=== PATIENT | female | born 1975 | race Caucasian/White ===

== ENCOUNTER 2018-02-15 03:34 | Observation (INO) | payer BC ==
[2018-02-15 04:15] LABS: Absolute Lymphocytes (CBC) 2.1 K/uL (0.7-4.9); Absolute Monocytes 0.5 K/uL (0.1-1.3); Absolute Neutrophil 4.3 K/uL (1.8-8.0); Basophils % 1.1 % (0-1.3); Eosinophils % 2.8 % (0-4.4); Hematocrit 39.5 % (36.0-45.0); Lymphocytes % 29.2 % (15.3-44.8); MCH 30.8 pg (27.0-35.0); MCV 91.8 fL (80-100); MPV 7.9 fL (7.6-11.3); Monocytes % 6.9 % (3.3-12.3); RBC Red Blood Cell Count 4.31 M/uL (3.86-4.86)
[2018-02-15 04:19] LABS: Urine Blood TRACE (NEG); Urine Glucose NEGATIVE (NEG); Urine Protein NEGATIVE (NEG)
[2018-02-15 04:26] LABS: Urine Bacteria <20 /HPF (<20); Urine Culture Reflex Order NOT NEEDED; Urine Mucus LIGHT /HPF (NONE SEEN)
[2018-02-15 04:29] LABS: Bicarbonate 26 mEq/L (21-31); Glucose Level 106 mg/dL (65-120); Lipase 28 U/L (22-51); Potassium 3.7 mEq/L (3.6-5.0); Sodium Level 137 mEq/L (135-145)
[2018-02-15 04:35] LABS: ALT/SGPT 10 IU/L (10-60); AST/SGOT 17 IU/L (10-42); Alkaline Phosphatase 55 IU/L (42-121); Amylase Level 69 U/L (28-100); BUN Blood Urea Nitrogen 8 mg/dL (6-20); Bilirubin Direct 0.1 mg/dL (0-0.2); Bilirubin Total 0.4 mg/dL (0.3-1.2); Protein, Total 7.1 g/dL (6.0-8.3)
[2018-02-15] MEDS ORDERED: MORPHINE 4 MG/ML SYR ONE (05:00)
[2018-02-15] MEDS ORDERED: PROMETHAZINE 25 MG/ML VIAL ONE (05:01)
[2018-02-15] MEDS ORDERED: NA CHLORIDE 0.9% 1,000 ML ONE ×2 (05:01→06:13)
--- NOTE | 2018-02-15 05:11 | EDPHYS ---
Physician Documentation [facility] Name: Lorie De Los Santos Age: 42 yrs Sex: Female : 1975 Arrival Date: 02/15/2018 Time: 03:38 Bed 7 Private MD: ED Physician Stiven Ernst HPI: 02/15 05:07 This 42 yrs old Female presents to ER via Ambulatory with complaints of delmis Abdominal Pain, Back Pain. 05:07 The patient presents with pain that is acute. 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 - Social history:: Smoking status: Patient uses tobacco products, smokes one pack cigarettes per day. Patient uses alcohol, occasionally. ROS: 05:08 Constitutional: Negative for fever, chills, and weight loss, Eyes: Negative for injury, delmis pain, redness, and discharge, ENT: Negative for injury, pain, and discharge, Neck: Negative for injury, pain, and swelling, Cardiovascular: Negative for chest pain, palpitations, and edema, Respiratory: Negative for shortness of breath, cough, wheezing, and pleuritic chest pain, Back: Negative for injury and pain, : Negative for injury, bleeding, discharge, and swelling, MS/Extremity: Negative for injury and deformity, Skin: Negative for injury, rash, and discoloration, Neuro: Negative for headache, weakness, numbness, tingling, and seizure, Psych: Negative for depression, anxiety, suicide ideation, homicidal ideation, and hallucinations, Allergy/Immunology: Negative for hives, rash, and allergies, Endocrine: Negative for neck swelling, polydipsia, polyuria, polyphagia, and marked weight changes. 05:08 Abdomen/GI: Positive for abdominal pain, of the epigastric area, right upper quadrant and left upper quadrant. Exam: 05:08 Constitutional: This is a well developed, well nourished patient who is awake, alert, delmis and in no acute distress. Head/Face: Normocephalic, atraumatic. Eyes: Pupils equal round and reactive to light, extra-ocular motions intact. Lids and lashes normal. Conjunctiva and sclera are non-icteric and not injected. Cornea within normal limits. Periorbital areas with no swelling, redness, or edema. ENT: Nares patent. No nasal discharge, no septal abnormalities noted. Tympanic membranes are normal and external auditory canals are clear. Oropharynx with no redness, swelling, or masses, exudates, or evidence of obstruction, uvula midline. Mucous membranes moist. Neck: Trachea midline, no thyromegaly or masses palpated, and no cervical lymphadenopathy. Supple, full range of motion without nuchal rigidity, or vertebral point tenderness. No Meningismus. Chest/axilla: Normal chest wall appearance and motion. Nontender with no deformity. No lesions are appreciated. Cardiovascular: Regular rate and rhythm with a normal S1 and S2. No gallops, murmurs, or rubs. Normal PMI, no JVD. No pulse deficits. Respiratory: Lungs have equal breath sounds bilaterally, clear to auscultation and percussion. No rales, rhonchi or wheezes noted. No increased work of breathing, no retractions or nasal flaring. Back: No spinal tenderness. No costovertebral tenderness. Full range of motion. Female : Normal external genitalia. Skin: Warm, dry with normal turgor. Normal color with no rashes, no lesions, and no evidence of cellulitis. MS/ Extremity: Pulses equal, no cyanosis. Neurovascular intact. Full, normal range of motion. Neuro: Awake and alert, GCS 15, oriented to person, place, time, and situation. Cranial nerves II-XII grossly intact. Motor strength 5/5 in all extremities. Sensory grossly intact. Cerebellar exam normal. Normal gait. Psych: Awake, alert, with orientation to person, place and time. Behavior, mood, and affect are within normal limits. 05:08 Abdomen/GI: Inspection: abdomen appears normal, Bowel sounds: normal, Palpation: mild abdominal tenderness, moderate abdominal tenderness, in the epigastric area, right upper quadrant and left upper quadrant. Vital Signs: 03:48 BP 127 / 83; Pulse 74; Resp 17; Temp 97.6; Pulse Ox 97% ; Weight 72.57 kg; Height 5 ft. tl1 7 in. (170.18 cm); Pain 5/10; 05:00 BP 115 / 79; Pulse 78; Resp 17; Pulse Ox 100% ; Pain 8/10; tl1 05:43 BP 103 / 81; Pulse 64; Resp 17; Pulse Ox 100% ; Pain 0/10; tl1 06:19 BP 107 / 72; Pulse 56; Resp 16; Temp 97.4; Pulse Ox 100% ; Pain 0/10; tl1 07:20 BP 107 / 71; Pulse 54; Resp 16; Pulse Ox 99% ; jl7 03:48 Body Mass Index 25.06 (72.57 kg, 170.18 cm) tl1 MDM: 04:24 Patient medically screened. [facility] 02/15 03:51 Order name: Amylase, Serum; Complete Time: 05:04 [facility] 02/15 03:51 Order name: Basic Metabolic Panel; Complete Time: 05:04 [facility] 02/15 03:51 Order name: CBC with Diff; Complete Time: 05:04 [facility] 02/15 03:51 Order name: Hepatic Function; Complete Time: 05:04 [facility] 02/15 03:51 Order name: Lipase; Complete Time: 05:04 [facility] 02/15 03:51 Order name: Urine Microscopic Only; Complete Time: 05:04 [facility] 02/15 04:09 Order name: Urine Dipstick--Ancillary (enter results); Complete Time: 05:04 02/15 04:09 Order name: Urine --Ancillary (enter results); Complete Time: 05:04 02/15 05:15 Order name: Basic Metabolic Panel [facility] 02/15 05:15 Order name: Basic Metabolic Panel [facility] 02/15 05:15 Order name: CBC with Automated Diff [facility] 02/15 05:15 Order name: CBC with Automated Diff [facility] 02/15 05:15 Order name: Lipase [facility] 02/15 03:51 Order name: IV Saline Lock; Complete Time: 03:56 [facility] 02/15 05:07 Order name: CT Abd/Pelvis - W/Contrast [facility] 02/15 05:07 Order name: US Abdomen Limited [facility] 02/15 05:15 Order name: NPO [facility] 02/15 05:15 Order name: Lipase [facility] 02/15 05:15 Order name: Liver (Hepatic) Function [facility] 02/15 05:15 Order name: Liver (Hepatic) Function [facility] 02/15 03:51 Order name: Labs collected and sent; Complete Time: 03:56 tl1 Administered Medications: 05:08 CANCELLED (not available): Zofran 4 mg IVP once; over 2 minutes tl1 05:08 CANCELLED (Duplicate Order): NS 0.9% 1000 ml IV at 1000 ml once tl1 05:08 CANCELLED (Duplicate Order): morphine 4 mg IVP once tl1 05:09 Drug: NS 0.9% 1000 ml Route: IV; Rate: 1 bolus; Site: right antecubital; tl1 06:09 Follow up: IV Status: Completed infusion tl1 05:09 Drug: Phenergan 12.5 mg Route: IVP; Infused Over: 3 mins; Site: right antecubital; tl1 05:44 Follow up: Response: No adverse reaction; Marked relief of symptoms; Nausea is decreasedtl1 05:10 Drug: morphine 4 mg Route: IVP; Site: right antecubital; tl1 05:45 Follow up: Response: No adverse reaction; Marked relief of symptoms; Pain is decreased tl1 05:16 Drug: Pepcid 20 mg Route: IVP; Infused Over: 3 mins; Site: right antecubital; tl1 05:45 Follow up: Response: No adverse reaction; No change in condition tl1 05:16 Drug: Zosyn 3.375 grams Route: IVPB; Infused Over: 60 mins; Site: right antecubital; tl1 06:09 Follow up: IV Status: Completed infusion tl1 06:18 Drug: NS 0.9% 1000 ml Route: IV; Rate: 125 ml/hr; Site: right antecubital; tl1 06:21 Follow up: IV Status: Infusion continued upon admission tl1 Disposition: 02/15/18 05:10 Hospitalization ordered by Howard Ashley for Observation. Preliminary diagnosis are Abdominal tenderness, Upper abdominal pain, unspecified. - Bed requested for Telemetry/MedSurg (Inpatient). - Status is Observation. jl7 - Condition is Fair. - Problem is new. - Symptoms have improved. UTI on Admission? No Signatures: Dispatcher [employer] EDMS Monserrat Rosales RN RN kl Anderson, Corey, MD MD cha Lasagna, Tonya, RN RN tl1 Sofía Ba RN RN jl7 Corrections: (The following items were deleted from the chart) 05:07 03:52 Creatinine for Radiology+C.LAB.BRZ ordered. EDMS EDMS 05:08 05:07 Zofran 4 mg IVP once; over 2 minutes ordered. delmis tl1 05:08 05:07 NS 0.9% 1000 ml IV at 1000 ml once ordered. tl1 tl1 05:08 05:07 morphine 4 mg IVP once ordered. tl1 tl1 06:03 05:10 Hospitalization Ordered by Howard Ashley MD for Observation. Preliminary kl diagnosis is Abdominal tenderness; Upper abdominal pain, unspecified. Bed requested for Telemetry/MedSurg (Inpatient). Status is Observation. Condition is Fair. Problem is new. Symptoms have improved. UTI on Admission? No. delmis 08:00 06:03 02/15/2018 05:10 Hospitalization Ordered by Howard Ashley MD for Observation. jl7 Preliminary diagnosis is Abdominal tenderness; Upper abdominal pain, unspecified. Bed requested for Telemetry/MedSurg (Inpatient). Status is Observation. Condition is Fair. Problem is new. Symptoms have improved. UTI on Admission? No. kl
--- NOTE | 2018-02-15 05:11 | ER ---
Nurse's Notes [facility] Name: Lorie De Los Santos Age: 42 yrs Sex: Female : 1975 Arrival Date: 02/15/2018 Time: 03:38 Bed 7 Private MD: Diagnosis: Abdominal tenderness;Upper abdominal pain, unspecified Presentation: 02/15 03:47 Presenting complaint: Patient states: After dinner tonight I got pain in my upper tl1 stomach that radiated around my right back. Transition of care: patient was not received from another setting of care. Onset of symptoms was February 15, 2018. Initial Sepsis Screen: Does the patient meet any 2 criteria? No. Patient's initial sepsis screen is negative. Does the patient have a suspected source of infection? No. Patient's initial sepsis screen is negative. Care prior to arrival: None. 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 - Social history:: Smoking status: Patient uses tobacco products, smokes one pack cigarettes per day. Patient uses alcohol, occasionally. Screenin:54 Abuse screen: Denies threats or abuse. Denies injuries from another. Nutritional tl1 screening: No deficits noted. Tuberculosis screening: No symptoms or risk factors identified. Fall Risk IV access (20 points). Assessment: 03:52 General: Appears in no apparent distress. Behavior is calm, cooperative, appropriate tl1 for age. Pain: Complains of pain in epigastric area Pain radiates to back Pain currently is 5 out of 10 on a pain scale. Quality of pain is described as burning. Neuro: Level of Consciousness is awake, alert, obeys commands, Oriented to person, place, time, situation. Cardiovascular: Denies chest pain. Respiratory: Airway is patent Trachea midline Respiratory effort is even, unlabored, Breath sounds are clear bilaterally. GI: Abdomen is non-distended, Bowel sounds present X 4 quads. Abd is soft X 4 quads Abd is non tender X 4 quads Reports upper abdominal pain. : No signs and/or symptoms were reported regarding the genitourinary system. EENT: No signs and/or symptoms were reported regarding the EENT system. Derm: No signs and/or symptoms reported regarding the dermatologic system. Musculoskeletal: No signs and/or symptoms reported regarding the musculoskeletal system. 05:44 Reassessment: Patient and/or family updated on plan of care and expected duration. Pain tl1 level reassessed. Patient is alert, oriented x 3, equal unlabored respirations, skin warm/dry/pink. Patient denies pain at this time. Patient states feeling better. Patient states symptoms have improved. Vital Signs: 03:48 BP 127 / 83; Pulse 74; Resp 17; Temp 97.6; Pulse Ox 97% ; Weight 72.57 kg; Height 5 ft. tl1 7 in. (170.18 cm); Pain 5/10; 05:00 BP 115 / 79; Pulse 78; Resp 17; Pulse Ox 100% ; Pain 8/10; tl1 05:43 BP 103 / 81; Pulse 64; Resp 17; Pulse Ox 100% ; Pain 0/10; tl1 06:19 BP 107 / 72; Pulse 56; Resp 16; Temp 97.4; Pulse Ox 100% ; Pain 0/10; tl1 07:20 BP 107 / 71; Pulse 54; Resp 16; Pulse Ox 99% ; jl7 03:48 Body Mass Index 25.06 (72.57 kg, 170.18 cm) tl1 ED Course: 03:38 Patient arrived in ED. es 03:46 Magalys Paz, RN is Primary Nurse. tl1 03:48 Triage completed. tl1 03:51 Arm band placed on right wrist. tl1 03:51 Patient has correct armband on for positive identification. Bed in low position. Call tl1 light in reach. Side rails up X 1. Adult w/ patient. 03:56 Inserted saline lock: 20 gauge in right antecubital area, using aseptic technique. tl2 Blood collected. 04:03 Stiven Ernst MD is Attending Physician. delmis 05:09 Howard Ashley MD is Hospitalizing Provider. delmis 05:[address] via stretcher. nj 05:34 CT completed. Patient tolerated procedure well. Patient moved back from CT. nj 06:20 No provider procedures requiring assistance completed. Patient admitted, IV remains in tl1 place. 07:38 Ultrasound completed. Patient tolerated well. sg3 Administered Medications: 05:08 CANCELLED (not available): Zofran 4 mg IVP once; over 2 minutes tl1 05:08 CANCELLED (Duplicate Order): NS 0.9% 1000 ml IV at 1000 ml once tl1 05:08 CANCELLED (Duplicate Order): morphine 4 mg IVP once tl1 05:09 Drug: NS 0.9% 1000 ml Route: IV; Rate: 1 bolus; Site: right antecubital; tl1 06:09 Follow up: IV Status: Completed infusion tl1 05:09 Drug: Phenergan 12.5 mg Route: IVP; Infused Over: 3 mins; Site: right antecubital; tl1 05:44 Follow up: Response: No adverse reaction; Marked relief of symptoms; Nausea is decreasedtl1 05:10 Drug: morphine 4 mg Route: IVP; Site: right antecubital; tl1 05:45 Follow up: Response: No adverse reaction; Marked relief of symptoms; Pain is decreased tl1 05:16 Drug: Pepcid 20 mg Route: IVP; Infused Over: 3 mins; Site: right antecubital; tl1 05:45 Follow up: Response: No adverse reaction; No change in condition tl1 05:16 Drug: Zosyn 3.375 grams Route: IVPB; Infused Over: 60 mins; Site: right antecubital; tl1 06:09 Follow up: IV Status: Completed infusion tl1 06:18 Drug: NS 0.9% 1000 ml Route: IV; Rate: 125 ml/hr; Site: right antecubital; tl1 06:21 Follow up: IV Status: Infusion continued upon admission tl1 Outcome: 05:10 Decision to Hospitalize by Provider. delmis 07:46 Admitted to Med/surg accompanied by tech, via wheelchair, room 430, with chart, Report jl7 called to DARIEL Mtz 07:46 Condition: stable 07:46 Discharge instructions given to patient, Instructed on the need for admit, Demonstrated understanding of instructions. 08:00 Patient left the ED. jl7 Signatures: Stiven Ernst MD MD cha Salyer, Edna es Lasagna, Tonya, RN RN tl1 Ruth Miranda RN RN tl2 Car Chao Jahala, RN RN jl7 Radha Toledo sg3
[2018-02-15] MEDS ORDERED: ACETAMINOPHEN 500 MG TAB PO PRN (05:12)
[2018-02-15] MEDS ORDERED: MORPHINE 4 MG/ML SYR IV PRN (05:12)
[2018-02-15] MEDS ORDERED: ONDANSETRON 4 MG/2 ML VIAL IV PRN (05:12)
[2018-02-15] MEDS ORDERED: FAMOTIDINE 20 MG/2 ML VIAL IV ONE (05:13)
[2018-02-15] MEDS ORDERED: PIPER/TAZO/NS 3.375gm 3.375 GM/100 ML BAG ONE (05:13)
--- NOTE | 2018-02-15 08:03 | RAD REPORT ---
EXAM DESCRIPTION: CT - Abdomen Pelvis W Contrast - 02/15/2018 6:42 am CLINICAL HISTORY: Abdominal pain A preliminary written report was provided at the time of the study, and the report was reviewed prio r to final dictation. COMPARISON: None. TECHNIQUE: Biphasic, helical CT imaging of the abdomen and pelvis was performed following 100 ml non -ionic IV contrast. No oral contrast was given. All CT scans are performed using dose optimization technique as appropriate and may include automated exposure control or mA/KV adjustment according to patient size. FINDINGS: No suspicious findings in the lung bases. The liver, spleen, and pancreas show no suspicious findings. Gallbladder is well filled but not dilat ed. Gallbladder wall is minimally edematous and there is a trace amount of pericholecystic fluid. No biliary tree dilatation. Symmetric renal function is seen with no hydronephrosis or suspicious renal mass. No pyelonephritis o r acute renal parenchymal process. Urinary bladder, uterus and ovaries show no suspicious findings. Food fills but does not abnormally distend the stomach. No true gastric wall thickening or mass suspe cted. Multiple fluid filled but nondilated small bowel loops are present. Moderate stool volume is pr esent without an acute colon process seen. No appendicitis findings. No free air or pneumatosis. No focal inflammatory stranding. Trace amount of fluid in the [place]sa [place] is within physiologic limits. No hernia, mass or bulky lymphadenopathy. No adrenal abnormality. No suspicious bony findings. IMPRESSION: Gallbladder is well filled but not dilated. There is trace pericholecystic fluid and que stionable gallbladder wall edema. Gallstones can be occult. Biliary tree and pancreas are unremarkable. No other right upper quadrant finding. Fluid-filled small bowel loops are present. These are not clearly abnormal although a small bowel ent eritis would still be possible.
--- NOTE | 2018-02-15 08:05 | RAD REPORT ---
EXAM DESCRIPTION: US - Abdomen Exam Limited - 02/15/2018 7:38 am CLINICAL HISTORY: Right upper quadrant pain, abnormal CT study COMPARISON: CT abdomen February 15 FINDINGS: Gallbladder is well filled but not abnormally distended. Several small mobile gallstones a re present under 1 centimeter in size. Gallbladder wall is upper normal to slightly thickened. The tr eden pericholecystic fluid seen at CT imaging cannot be confirmed on this study. No gallstone is confi rmed as being fixed in the neck. No common duct stone or biliary tree dilatation identified. IMPRESSION: Multiple small sub centimeter mobile gallstones are present. Upper normal to slightly thickened gallbladder wall. Pericholecystic fluid seen at CT imaging is not confirmed at sonography. No biliary tree abnormality.
[2018-02-15] MEDS: D5 0.45 NS 1,000 ML IV SCH ×2 (08:29→14:00)
[2018-02-15] MEDS ORDERED: FAMOTIDINE 20 MG/2 ML VIAL IV SCH (09:00)
[2018-02-15 09:52] VITALS: BMI 25.0
--- NOTE | 2018-02-15 10:28 | P.HP ---
Date of Service: 02/15/18 PC: This 42-year-old female experienced severe right upper quadrant abdominal pain radiating into her back. She presents to the emergency room for diagnosis and treatment. HPC: Patient had sudden onset of excruciating hard abdominal pain last night. Doubled her over. Came to the emergency room. Thinks she may have had some similar episodes recently that were not as severe. PMH: Negative PSHx: Teeth issues necessitating removal of top and bottom, previous tubal ligation SOC: No known allergy SYS REVIEW: No cough, wheeze, shortness of breath. No chest pain or palpitations. No urinary complaints. States she is otherwise in relatively good O/E awake alert comfortable at the moment HEENT: Not jaundice Chest: Chest movement equal bilaterally ABD: Tender in the right upper quadrant LOCO: Intact DATA: Has documented gallstone IMPRESSION: Cholecystitis with cholelithiasis PLAN: I will take her to the operating room for laparoscopic possible open cholecystectomy with intraoperative cholangiogram. The risks of this procedure have been discussed. The possibility of bleeding, infection, injury to bile ducts blood vessels and intestines has been described. The possible need for an open and/or further surgeries and procedures was discussed. She understands and wants us to proceed.
[2018-02-15] MEDS ORDERED: Ringers Lactate 1,000 ML IV ONE (11:23)
[2018-02-15] MEDS: PIPER/TAZO/NS 3.375gm 3.375 GM/100 ML BAG IVPB SCH ×3 (11:39→17:10)
[2018-02-15] MEDS ORDERED: ROCURONIUM 50 MG/5 ML VIAL IV ONE (12:17)
[2018-02-15] MEDS ORDERED: FENTANYL CITR 100 MCG/2 ML ONE ×2 (12:17→13:47)
[2018-02-15] MEDS ORDERED: PROPOFOL 200 MG/20 ML VIAL IV ONE (12:17)
[2018-02-15] MEDS ORDERED: ONDANSETRON HCL 40 MG/20 ML VIAL ONE (13:13)
[2018-02-15] MEDS ORDERED: DEXAMETHASONE 10 MG/ML VIAL ONE (13:13)
[2018-02-15] MEDS ORDERED: KETOROLAC 30 MG/ML INJ ONE (13:13)
[2018-02-15] MEDS ORDERED: NEOSTIGMINE 1 MG/ML -5 ML SYRINGE ONE (13:33)
[2018-02-15] MEDS ORDERED: GLYCOPYRROLATE 0.2 MG/ML SYR ONE (13:33)
--- NOTE | 2018-02-15 14:05 | P.OP ---
Preoperative diagnosis: Acute on chronic cholecystitis with cholelithiasis Postoperative diagnosis: The same Primary procedure: Laparoscopic cholecystectomy Secondary procedure: Cholangiogram Anesthesia: General Estimated blood loss: Less than 10 cc Specimen: 1 gallbladder incontinence Operative Technique: The patient brought the operating room and placed supine on the table. After the induction of adequate general endotracheal anesthesia, the area of the abdomen was prepped with a DuraPrep solution and she was draped in usual aseptic manner. A subumbilical incision was made. This brought down through the skin and subcutaneous tissue. The tissue port was used to enter the peritoneal cavity and created pneumoperitoneum to approximately 12 mm of mercury. Under direct vision a 5 mm trocar was placed in the midline, and 2 others on the right lateral of the abdominal wall. With the patient placed in reverse Trendelenburg and rolled to the left were able to visualize right upper quadrant. We could see a distended acutely inflamed gallbladder. There was obvious edema in the garcia of the gallbladder. A grasper was placed on the fundus, and another down by Julio César's pouch. Once again there was a marked amount of edema around Julio César's pouch. The peritoneum was opened this area gently dissected off the surrounding structures. Having applied lateral traction obtained no critical view the cystic duct was clipped between the gallbladder and the cystic duct. An opening was made into the cystic duct through which we obtained a normal intraoperative cholangiogram. The catheter was removed. The cystic was secured with 2 clips placed using the Endo clips device. The cystic duct was now fully transected. The cystic artery was clipped and divided in the usual way. The gallbladder was now dissected from the liver bed, placed into an Endo-Catch, and brought out through the umbilical trocar site. At this point the abdomen is inspected to ensure adequate hemostasis. Was returned to the neutral position on the OR table. The umbilical trocar site was approximated using the Endo Close an absorbable stitch. The irrigating fluid was aspirated from the right upper quadrant. The pneumoperitoneum was collapsed, the suture tied, and garrett applied to the skin. At the end of the procedure she was stable when sent to the recovery room. Needle sponge instrument count were correct. No drains were placed. Complications: None Transferred to: Recovery Room Condition: Good
[2018-02-15] MEDS ORDERED: HYDROCODONE/APAP 7.5/325 MG TAB PO PRN (14:18)
[2018-02-15] MEDS ORDERED: Ringers Lactate 1,000 ML IV SCH (14:18)
[2018-02-15] MEDS: MEPERIDINE HCL 50 MG/ML AMP ONE ×2 (14:21→14:26)
--- NOTE | 2018-02-15 14:38 | RAD REPORT ---
EXAM DESCRIPTION: RAD - Cholangiogram Oper-Xray Or - 02/15/2018 2:15 pm FINDINGS: Portable C-arm views were obtained during intraoperative cholangiogram. Biliary tree is not dilated. No duct stone, stricture or mass seen on limited evaluation. Contrast in the gallbladder fossa is possibly due to technical factors of injection rather than biloma or bile l eak. Gallbladder is presumed to the already been removed. Overall assessment is limited when only a single images available for review. Correlation is needed w ith findings during real-time evaluation.
[2018-02-15 14:43] VITALS: O2SAT 94
[2018-02-15 15:22] VITALS: TEMP 97.1
[2018-02-15 16:54] VITALS: BP 91/59
== END 2018-02-15 18:32 | disposition home or self-care (01) ==
LOC: ER 03:34 → ERHOLD 05:11 → 4TH 07:43
PROVIDERS: ADMIT Surgery; ATTEND Surgery
PROC: BF00YZZ Plain Radiography of Bile Ducts using Other Contrast (ICD-10-PCS; 2018-02-15)
PROC: 0FT44ZZ Resection of Gallbladder, Percutaneous Endoscopic Approach (ICD-10-PCS; principal; 2018-02-15 12:00)
DX: K80.12 Calculus of gallbladder with acute and chronic cholecystitis without obstruction (principal)
CPT/HCPCS: 36415; 74177; 74300; 76705; 80048; 80076; 81003; 81015; 81025; 82150; 83690; 85025; 88304; 88305; 96361; 96365; 96375; 99285; G0378; J1100; J2175; J2405; J2543; J2550; J2710; J3010; J7030; Q9967

== ENCOUNTER 2018-11-09 15:56 | Emergency (ER) | payer BC ==
[2018-11-09 16:35] LABS: Absolute Lymphocytes (CBC) 2.2 K/uL (0.7-4.9); Absolute Monocytes 0.4 K/uL (0.1-1.3); Absolute Neutrophil 4.1 K/uL (1.8-8.0); Basophils % 0.9 % (0-1.3); Eosinophils % 1.5 % (0-4.4); Hematocrit 42.7 % (36.0-45.0); Lymphocytes % 31.6 % (15.3-44.8); MPV 7.9 fL (7.6-11.3); Monocytes % 6.1 % (3.3-12.3); RBC Red Blood Cell Count 4.64 M/uL (3.86-4.86)
[2018-11-09] MEDS ORDERED: ALTEPLASE 0 ML IV ONE (16:43)
[2018-11-09 16:48] LABS: BUN Blood Urea Nitrogen 8 mg/dL (7-18); Bicarbonate 25 mmol/L (21-32); Glucose Level 118 mg/dL (74-106); Potassium 3.5 mmol/L (3.5-5.1); Sodium Level 139 mmol/L (136-145)
--- NOTE | 2018-11-09 17:13 | RAD REPORT ---
EXAM DESCRIPTION: CT - Ct Stroke Brain Wo Cont - 11/09/2018 4:33 pm CLINICAL HISTORY: Left-sided numbness and tingling, stroke protocol study CLINICAL HISTORY: None. TECHNIQUE: Axial 5 millimeter thick images of the head were obtained without IV contrast. All CT scans are performed using dose optimization technique as appropriate and may include automated exposure control or mA/KV adjustment according to patient size. FINDINGS: No intracranial hemorrhage, mass, or cerebral edema. No acute infarction identifiable. No extra-axial fluid collections. Liao matter-white matter differentiation is preserved. Visualized portions of the mastoid air cells, paranasal sinuses, and orbits are unremarkable. Findings telephoned to the referring clinician 4:17 p.m. IMPRESSION: No CT evidence of acute intracranial process. Continued concerns for acute CVA can be addressed with MR imaging.
--- NOTE | 2018-11-09 17:14 | RAD REPORT ---
EXAM DESCRIPTION: RAD - Chest Single View - 11/09/2018 4:57 pm CLINICAL HISTORY: Stroke protocol chest film, left-sided symptoms COMPARISON: CT study January 2018 TECHNIQUE: AP portable chest image was obtained 1654 hour . FINDINGS: Lungs are clear. Heart and vasculature are normal. No measurable pleural effusion and no p neumothorax. No acute bony abnormality seen. No acute aortic findings suspected. Right pericardial fa t pad is present. IMPRESSION: No acute cardiopulmonary process.
--- NOTE | 2018-11-09 17:33 | ER ---
Nurse's Notes [facility] Name: Lorie De Los Santos Age: 43 yrs Sex: Female : 1975 Arrival Date: 11/09/2018 Time: 15:57 Bed 8 Private MD: None, None Diagnosis: Ischemic stroke;Paresthesia of skin;Weakness Presentation: 11/09 16:08 Presenting complaint: Left sided facial numbness, left arm and top of left thigh hb numbness that started at 1515. 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 Transition of care: patient was not received from another setting of care. Onset of symptoms was November 09, 2018 at 15:15. Risk Assessment: Do you want to hurt yourself or someone else? Patient reports no desire to harm self or others. Care prior to arrival: Medication(s) given: ASA, 81 mg. 16:08 Method Of Arrival: Ambulatory hb 16:08 Acuity: BORA 2 hb 16:20 Initial Sepsis Screen: Does the patient meet any 2 criteria? No. Patient's initial sv sepsis screen is negative. Does the patient have a suspected source of infection? No. Patient's initial sepsis screen is negative. Historical: - Allergies: 16:23 No Known Allergies; hb - Home Meds: 16:23 None [Active]; hb - PMHx: 16:23 None; hb - PSHx: 16:23 Tubal ligation; hb - Immunization history:: Adult Immunizations up to date. - Social history:: Smoking status: Patient/guardian denies using tobacco. - Ebola Screening: : No symptoms or risks identified at this time. - Family history:: not pertinent. - Hospitalizations: : No recent hospitalization is reported. Screenin:22 Abuse screen: Denies threats or abuse. Denies injuries from another. Nutritional hb screening: No deficits noted. Tuberculosis screening: No symptoms or risk factors identified. Fall Risk None identified. 16:25 Patient has been NPO before screening. The patient is alert, able to follow commands. sv The patient does not exhibit slurred or garbled speech The patient is not exhibiting difficulty speaking. The patient does not exhibit difficulty understanding words. The patient is able to swallow own secretions with no drooling or need for suction. Patient tolerated one teaspoon of water. No drooling, immediate coughing, gurgling, or clearing of the throat was noted. The patient tolerated 90mL of water. No drooling, immediate coughing, gurgling, or clearing of the throat was noted. The patient passed the bedside swallow screening. Oral medications may be given as ordered. Contact Physician for further diet orders. Provider notified of bedside swallow screening results: Huber Azevedo MD. Assessment: 16:08 Reassessment: BGL 111. hb 16:09 Reassessment: CODE STROKE called, pt transported to CT via wheelchair with Reba VIEIRA. hb 16:15 Reassessment: Pt returned from CT. hb 16:16 Reassessment: Dr. Azevedo at bedside. hb 16:37 Reassessment: Pt had a change of mind about TPA administration. Initially after going ss over risks and possible benefits involved patient gave verbal consent for TPA administration. When getting paper consent signed, patient stated she no longer would like to have the TPA medication. Dr. Azevedo notified and is again at bedside. 16:45 Reassessment: Dr Azevedo stated that pt is unable to think straight right now because she sv has to urinate. Ok by Dr Azevedo to send pt to bathroom via wheelchair. 16:58 Reassessment: Dr Azevedo at bedside discussing with pt what her decision is. Pt does not sv want TPA at this time. 17:30 Reassessment: Patient appears in no apparent distress at this time. No changes from sv previously documented assessment. Patient and/or family updated on plan of care and expected duration. Pain level reassessed. Patient is alert, oriented x 3, equal unlabored respirations, skin warm/dry/pink. 18:07 Reassessment: Report called to [facility], to Rach VIEIRA. sv 18:39 Reassessment: Patient appears in no apparent distress at this time. No changes from sv previously documented assessment. Patient and/or family updated on plan of care and expected duration. Pain level reassessed. Patient is alert, oriented x 3, equal unlabored respirations, skin warm/dry/pink. Vital Signs: 16:08 BP 129 / 78; Pulse 99; Resp 16; Temp 97.2; Pulse Ox 100% on R/A; Pain 0/10; hb 16:30 Weight 88.8 kg (M); ss 16:30 BP 130 / 88; Pulse 77; Resp 12; Pulse Ox 100% ; sv 17:00 BP 113 / 80; Pulse 79; Resp 14; Pulse Ox 100% ; sv 17:30 BP 120 / 71; Pulse 70; Resp 14; Pulse Ox 100% ; sv 18:07 BP 131 / 65; Pulse 77; Resp 12; Pulse Ox 100% ; sv NIH Stroke Scale Scores: 16:18 NIHSS Score: 1 sv 16:30 NIHSS Score: 1 rn 16:58 NIHSS Score: 2 rn tele Course: 15:57 Patient arrived in ED. dl4 15:57 None, None is Private Physician. dl4 16:16 Huber Azevedo MD is Attending Physician. rn 16:20 Initial lab(s) drawn, by ED staff, sent to lab. Inserted saline lock: 20 gauge in right sv antecubital area, using aseptic technique. ,using aseptic technique. done by Kelin VIEIRA Blood collected. 16:20 Patient has correct armband on for positive identification. Placed in gown. Bed in low sv position. Call light in reach. Side rails up X 1. Adult w/ patient. patrol guard on. Pulse ox on. NIBP on. Door closed. Warm blanket given. Head of bed elevated. 16:20 Arm band placed on. sv 16:21 Triage completed. hb 16:33 CT Stroke Brain w/o Contrast In Process Unspecified. EDMS 16:52 Homa Durham, DARIEL is Primary Nurse. sv 16:54 X-ray(s) taken. sv 16:55 X-ray completed. Portable x-ray completed in exam room. Patient tolerated procedure sg4 well. 16:57 Stroke CXR 1 View In Process Unspecified. EDMS 18:08 No provider procedures requiring assistance completed. Patient transferred, IV remains sv in place. intact. Administered Medications: 17:22 Not Given (Patient Refused): ACTIvase IV Thrombolytics at calculated rate Per protocol rn over 60 mins; 0.9 mg/kg IV (Max: 90 mg); give 10% of the total dose as an IV bolus over 1 minute, then give the remaining 90% as an IV infusion over 60 minutes 18:39 Drug: PlaVIX 75 mg Route: PO; sv 18:39 Follow up: Response: Medication administered at discharge. sv Point of Care Testing: Blood Glucose: 16:09 Blood Glucose: 111 mg/dL; hb Ranges: Outcome: 17:32 ER care complete, transfer ordered by . rn 18:39 Transferred by [facility] to [facility], Transfer form completed. X-rays sent w/ patient. Note: Report give to Robson with EMS 18:39 Condition: stable 18:39 Instructed on the need for transfer. 18:54 Patient left the ED. NIH Stroke Scale - NIH Stroke Score Date: 11/09/2018 Time: 16:18 Total Score = 1 1a. Level of Consciousness (LOC) - 0(Alert) 1b. Level of Consciousness (LOC) (Year \T\ Age) - 0(Both) 1c. LOC Commands (Open \T\ Closes Eyes/Journeyman Plumber) - 0(Both) 2. Best Gaze (Lateral Gaze Paresis) - 0(Normal) 3. Visual Field Loss - 0(No visual loss) 4. Facial Palsy - 0(Normal) 5a. Left Arm: Motor (10-second hold) - 0(No drift) 5b. Right Arm: Motor (10-second hold) - 0(No drift) 6a. Left Leg: Motor (5-second hold - always test supine) - 0(No drift) 6b. Right Leg: Motor (5-second hold - always test supine) - 0(No drift) 7. Limb Ataxia (finger/nose \T\ heel/de los santos - test with eyes open) - 0(Absent) 8. Sensory Loss (pinprick arms/legs/face) - 1(Mild to moderate loss) 9. Best Language: Aphasia (description/naming/reading) - 0(No aphasia) 10. Dysarthria (speech clarity - read or repeat words) - 0(Normal) 11. Extinction and Inattention (visual/tactile/auditory/spatial/personal) - 0(No abnormality) Initials: NIH Stroke Scale - NIH Stroke Score Date: 11/09/2018 Time: 16:30 Total Score = 1 1a. Level of Consciousness (LOC) - 0(Alert) 1b. Level of Consciousness (LOC) (Year \T\ Age) - 0(Both) 1c. LOC Commands (Open \T\ Closes Eyes/Journeyman Plumber) - 0(Both) 2. Best Gaze (Lateral Gaze Paresis) - 0(Normal) 3. Visual Field Loss - 0(No visual loss) 4. Facial Palsy - 0(Normal) 5a. Left Arm: Motor (10-second hold) - 0(No drift) 5b. Right Arm: Motor (10-second hold) - 0(No drift) 6a. Left Leg: Motor (5-second hold - always test supine) - 0(No drift) 6b. Right Leg: Motor (5-second hold - always test supine) - 0(No drift) 7. Limb Ataxia (finger/nose \T\ heel/de los santos - test with eyes open) - 0(Absent) 8. Sensory Loss (pinprick arms/legs/face) - 1(Mild to moderate loss) 9. Best Language: Aphasia (description/naming/reading) - 0(No aphasia) 10. Dysarthria (speech clarity - read or repeat words) - 0(Normal) 11. Extinction and Inattention (visual/tactile/auditory/spatial/personal) - 0(No abnormality) Initials: dariel NIH Stroke Scale - NIH Stroke Score Date: 11/09/2018 Time: 16:58 Total Score = 2 1a. Level of Consciousness (LOC) - 0(Alert) 1b. Level of Consciousness (LOC) (Year \T\ Age) - 0(Both) 1c. LOC Commands (Open \T\ Closes Eyes/Journeyman Plumber) - 0(Both) 2. Best Gaze (Lateral Gaze Paresis) - 0(Normal) 3. Visual Field Loss - 0(No visual loss) 4. Facial Palsy - 1(Minor Paralysis) 5a. Left Arm: Motor (10-second hold) - 0(No drift) 5b. Right Arm: Motor (10-second hold) - 0(No drift) 6a. Left Leg: Motor (5-second hold - always test supine) - 0(No drift) 6b. Right Leg: Motor (5-second hold - always test supine) - 0(No drift) 7. Limb Ataxia (finger/nose \T\ heel/de los santos - test with eyes open) - 0(Absent) 8. Sensory Loss (pinprick arms/legs/face) - 1(Mild to moderate loss) 9. Best Language: Aphasia (description/naming/reading) - 0(No aphasia) 10. Dysarthria (speech clarity - read or repeat words) - 0(Normal) 11. Extinction and Inattention (visual/tactile/auditory/spatial/personal) - 0(No abnormality) Initials: rn Signatures: Dispatcher [employer] Homa Wall RN RN sv Nieto, Roman, MD MD rn Smirch, Shelby, RN RN ss Baxter, Heather, RN RN hb Garcia, Susana sg4 Antonio Heath dl4 Corrections: (The following items were deleted from the chart) 16:14 16:14 BP 129 / 78; Pulse 99bpm; Resp 16bpm; Pulse Ox 100% RA; Temp 97.2F; Pain hb 0/10; hb
--- NOTE | 2018-11-09 17:33 | EDPHYS ---
Physician Documentation [facility] Name: Lorie De Los Santos Age: 43 yrs Sex: Female : 1975 Arrival Date: 11/09/2018 Time: 15:57 Bed 8 Private MD: None, None ED Physician Huber Azevedo HPI: 11/09 17:28 This 43 yrs old Female presents to ER via Ambulatory with complaints of rn Numbness Of Arm. 17:29 The patient presents to the emergency department with paresthesias of the. Onset: The rn symptoms/episode began/occurred at 15:15. Context: occurred at home. Severity of symptoms: At their worst the symptoms were moderate in the emergency department the symptoms have improved. Current symptoms: paralysis or paresis. The patient has not experienced similar symptoms in the past. Reports onset at 1515, left facial numbness and left arm numb, left leg numb and feels heavy, symptoms have improved but not totally resolved. NO trauma, no chest pain. . Historical: - Allergies: 16:23 No Known Allergies; hb - Home Meds: 16:23 None [Active]; hb - PMHx: 16:23 None; hb - PSHx: 16:23 Tubal ligation; hb - Immunization history:: Adult Immunizations up to date. - Social history:: Smoking status: Patient/guardian denies using tobacco. - Ebola Screening: : No symptoms or risks identified at this time. - Family history:: not pertinent. - Hospitalizations: : No recent hospitalization is reported. ROS: 17:29 Constitutional: Negative for fever, chills, and weight loss, Eyes: Negative for injury, rn pain, redness, and discharge, Cardiovascular: Negative for chest pain, palpitations, and edema, Respiratory: Negative for shortness of breath, cough, wheezing, and pleuritic chest pain, Abdomen/GI: Negative for abdominal pain, nausea, vomiting, diarrhea, and constipation, MS/Extremity: Negative for injury and deformity, Skin: Negative for injury, rash, and discoloration, Neuro: + numbness and weakness Exam: 17:29 Constitutional: This is a well developed, well nourished patient who is awake, alert, rn appears anxious Head/Face: Normocephalic, atraumatic. Eyes: Pupils equal round and reactive to light, extra-ocular motions intact. Lids and lashes normal. Conjunctiva and sclera are non-icteric and not injected. Cornea within normal limits. Periorbital areas with no swelling, redness, or edema. Cardiovascular: Regular rate and rhythm. No pulse deficits. Respiratory: Lungs have equal breath sounds bilaterally, clear to auscultation. No increased work of breathing, no retractions or nasal flaring. Abdomen/GI: soft, non-tender Skin: Warm, dry with normal turgor. Normal color with no rashes, no lesions, and no evidence of cellulitis. MS/ Extremity: Pulses equal, no cyanosis. Neurovascular intact. Full, normal range of motion. Equal circumference. Neuro: Awake and alert, GCS 15, oriented to person, place, time, and situation. + mild left lower facial droop, + paresthesias to soft touch LUE, normal strength without drift. Vital Signs: 16:08 BP 129 / 78; Pulse 99; Resp 16; Temp 97.2; Pulse Ox 100% on R/A; Pain 0/10; hb 16:30 Weight 88.8 kg (M); ss 16:30 BP 130 / 88; Pulse 77; Resp 12; Pulse Ox 100% ; sv 17:00 BP 113 / 80; Pulse 79; Resp 14; Pulse Ox 100% ; sv 17:30 BP 120 / 71; Pulse 70; Resp 14; Pulse Ox 100% ; sv 18:07 BP 131 / 65; Pulse 77; Resp 12; Pulse Ox 100% ; sv NIH Stroke Scale Scores: 16:18 NIHSS Score: 1 sv 16:30 NIHSS Score: 1 rn 16:58 NIHSS Score: 2 rn MDM: 16:16 Patient medically screened. rn 16:30 ED course: NIH scale 1, onset was 1 hour prior to arrival, symptoms present and rn consented for TPA. CT head no acute finding per radiology. . 16:58 ED course: Correction: NIH scale 2, for minor facial paralysis. Patient still does not rn want TPA, understands implications.. 17:18 ED course: Pt accepted for transfer to [facility] by Dr. Puente, confirmed again, does rn not want TPA. . 17:29 Data reviewed: vital signs, nurses notes, lab test result(s), EKG, radiologic studies, rn and as a result, I will admit patient. Counseling: I had a detailed discussion with the patient and/or guardian regarding: the historical points, exam findings, and any diagnostic results supporting the discharge/admit diagnosis, lab results, radiology results, the need to transfer to another facility, [facility] does not immediately have the required specialist. 11/09 16:26 Order name: Basic Metabolic Panel; Complete Time: 16:52 11/09 16:26 Order name: CBC with Diff; Complete Time: 16:52 11/09 16:26 Order name: Protime (+inr); Complete Time: 16:52 11/09 16:26 Order name: Ptt, Activated; Complete Time: 16:52 11/09 16:58 Order name: Urine Dipstick--Ancillary (enter results) 11/09 16:58 Order name: Urine --Ancillary (enter results) 11/09 16:26 Order name: CT Stroke Brain w/o Contrast; Complete Time: 17:17 11/09 16:26 Order name: Stroke CXR 1 View; Complete Time: 17:17 11/09 16:26 Order name: EKG; Complete Time: 16:27 11/09 16:26 Order name: Accucheck; Complete Time: 16:42 11/09 16:26 Order name: Cardiac monitoring; Complete Time: 16:42 11/09 16:26 Order name: EKG - Nurse/Tech; Complete Time: 16:43 11/09 16:26 Order name: IV Saline Lock; Complete Time: 16:32 11/09 16:26 Order name: Labs collected and sent; Complete Time: 16:32 11/09 16:26 Order name: NPO; Complete Time: 16:32 11/09 16:26 Order name: O2 Per Protocol; Complete Time: 16:32 11/09 16:26 Order name: O2 Sat Monitoring; Complete Time: 16:31 11/09 16:26 Order name: Stroke Swallow Screen; Complete Time: 18:00 em Administered Medications: 17:22 Not Given (Patient Refused): ACTIvase IV Thrombolytics at calculated rate Per protocol rn over 60 mins; 0.9 mg/kg IV (Max: 90 mg); give 10% of the total dose as an IV bolus over 1 minute, then give the remaining 90% as an IV infusion over 60 minutes 18:39 Drug: PlaVIX 75 mg Route: PO; 18:39 Follow up: Response: Medication administered at discharge. Point of Care Testing: Blood Glucose: 16:09 Blood Glucose: 111 mg/dL; hb Ranges: Critical Glucose Levels:Adult <50 mg/dl or >400 mg/dl <40 mg/dl or >180 mg/dl Disposition: 11/09/18 17:32 Transfer ordered to [facility]. Diagnosis are Ischemic stroke, Paresthesia of skin, Weakness. - Reason for transfer: Higher level of care. - Accepting physician is Dr. Puente. - Condition is Stable. - Problem is new. - Symptoms have improved. NIH Stroke Scale - NIH Stroke Score Date: 11/09/2018 Time: 16:18 Total Score = 1 1a. Level of Consciousness (LOC) - 0(Alert) 1b. Level of Consciousness (LOC) (Year \T\ Age) - 0(Both) 1c. LOC Commands (Open \T\ Closes Eyes/Color Maker Formulator) - 0(Both) 2. Best Gaze (Lateral Gaze Paresis) - 0(Normal) 3. Visual Field Loss - 0(No visual loss) 4. Facial Palsy - 0(Normal) 5a. Left Arm: Motor (10-second hold) - 0(No drift) 5b. Right Arm: Motor (10-second hold) - 0(No drift) 6a. Left Leg: Motor (5-second hold - always test supine) - 0(No drift) 6b. Right Leg: Motor (5-second hold - always test supine) - 0(No drift) 7. Limb Ataxia (finger/nose \T\ heel/de los santos - test with eyes open) - 0(Absent) 8. Sensory Loss (pinprick arms/legs/face) - 1(Mild to moderate loss) 9. Best Language: Aphasia (description/naming/reading) - 0(No aphasia) 10. Dysarthria (speech clarity - read or repeat words) - 0(Normal) 11. Extinction and Inattention (visual/tactile/auditory/spatial/personal) - 0(No abnormality) Initials: NIH Stroke Scale - NIH Stroke Score Date: 11/09/2018 Time: 16:30 Total Score = 1 1a. Level of Consciousness (LOC) - 0(Alert) 1b. Level of Consciousness (LOC) (Year \T\ Age) - 0(Both) 1c. LOC Commands (Open \T\ Closes Eyes/Color Maker Formulator) - 0(Both) 2. Best Gaze (Lateral Gaze Paresis) - 0(Normal) 3. Visual Field Loss - 0(No visual loss) 4. Facial Palsy - 0(Normal) 5a. Left Arm: Motor (10-second hold) - 0(No drift) 5b. Right Arm: Motor (10-second hold) - 0(No drift) 6a. Left Leg: Motor (5-second hold - always test supine) - 0(No drift) 6b. Right Leg: Motor (5-second hold - always test supine) - 0(No drift) 7. Limb Ataxia (finger/nose \T\ heel/de los santos - test with eyes open) - 0(Absent) 8. Sensory Loss (pinprick arms/legs/face) - 1(Mild to moderate loss) 9. Best Language: Aphasia (description/naming/reading) - 0(No aphasia) 10. Dysarthria (speech clarity - read or repeat words) - 0(Normal) 11. Extinction and Inattention (visual/tactile/auditory/spatial/personal) - 0(No abnormality) Initials: wali NIH Stroke Scale - NIH Stroke Score Date: 11/09/2018 Time: 16:58 Total Score = 2 1a. Level of Consciousness (LOC) - 0(Alert) 1b. Level of Consciousness (LOC) (Year \T\ Age) - 0(Both) 1c. LOC Commands (Open \T\ Closes Eyes/Color Maker Formulator) - 0(Both) 2. Best Gaze (Lateral Gaze Paresis) - 0(Normal) 3. Visual Field Loss - 0(No visual loss) 4. Facial Palsy - 1(Minor Paralysis) 5a. Left Arm: Motor (10-second hold) - 0(No drift) 5b. Right Arm: Motor (10-second hold) - 0(No drift) 6a. Left Leg: Motor (5-second hold - always test supine) - 0(No drift) 6b. Right Leg: Motor (5-second hold - always test supine) - 0(No drift) 7. Limb Ataxia (finger/nose \T\ heel/de los santos - test with eyes open) - 0(Absent) 8. Sensory Loss (pinprick arms/legs/face) - 1(Mild to moderate loss) 9. Best Language: Aphasia (description/naming/reading) - 0(No aphasia) 10. Dysarthria (speech clarity - read or repeat words) - 0(Normal) 11. Extinction and Inattention (visual/tactile/auditory/spatial/personal) - 0(No abnormality) Initials: rn Signatures: Dispatcher [employer] Homa Wall RN RN Huber Azevedo MD MD rn Martinez, Eric [facility] Reba Mathias RN RN Corrections: (The following items were deleted from the chart) 18:54 17:32 11/09/2018 17:32 Transfer ordered to [facility]. sv Diagnosis is Ischemic stroke; Paresthesia of skin; Weakness. Reason for transfer: Higher level of care. Accepting physician is Dr. Puente. Condition is Stable. Problem is new. Symptoms have improved. rn
[2018-11-09] MEDS ORDERED: CLOPIDOGREL 75 MG TABLET ONE (18:48)
[2018-11-09 19:45] LABS: Urine Blood NEGATIVE (NEG); Urine Glucose NEGATIVE (NEG); Urine Protein NEGATIVE (NEG); Urine pH 6.5 (5.0-7.0)
[2018-11-09 19:54] VITALS: TEMP 97.2; O2SAT 100
[2018-11-09 19:59] VITALS: BP 131/65
--- NOTE | 2018-11-09 21:50 | EKG ---
Test Date: 2018-11-09 Test Time: 16:29:06 Weathercaster: MEASUREMENT RESULTS: Intervals: Rate: 90 FL: 140 QRSD: 90 QT: 386 QTc: 472 [place]: P: 57 FL: 140 QRS: 22 T: 11 INTERPRETIVE STATEMENTS: Normal sinus rhythm Nonspecific ST abnormality Abnormal ECG No previous ECG available for comparison Electronically Signed On 11-09-18 21:49:28 HEATER ENGINEER HELPER by Jerrod Mares
== END 2018-11-09 18:54 | disposition short-term general hospital (02) ==
LOC: ER 15:56
DX: I63.9 Cerebral infarction, unspecified (principal); R53.1 Weakness; R29.810 Facial weakness; R29.702 NIHSS score 2
CPT/HCPCS: 36415; 70450; 71045; 80048; 81003; 81025; 82962; 85025; 85610; 85730; 93005; 99285; J2997

== ENCOUNTER → 2018-12-11 | Day surgery (SDC) | payer BC ==
[2012-03-16 10:48] VITALS: BP 120/75
--- OUTSIDE RECORDS SUMMARY | 2018-12-11 09:32 | XMS REPORT ---
:1975 Author Organization [employer] Care Team Providers Name Role Phone Sarah Euceda Provider Role Unavailable Allergies No Known Allergies Problems Problem Type Condition Code Onset Dates Condition Status Problem Thyroid lesion E07.89 Active Problem Anxiety F41.9 Active Problem Thyroid mass E07.9 Active Assessment Thyroid mass E07.9 Active Medications No Known Medications Results No Known Results Summary Purpose [employer] Submission
--- OUTSIDE RECORDS SUMMARY | 2018-12-11 09:32 | XMS REPORT ---
:1975 [facility] [address] [place] [address] Care Team Providers Name Role Phone YOLY ROSENBERG Unavailable Unavailable Problems This patient has no known problems. Allergies, Adverse Reactions, Alerts This patient has no known allergies or adverse reactions. Medications This patient has no known medications. Results Test Description Test Time Test Comments Text Results Atomic Results Result Comments CT, CTANGIO BRAIN 2018-11-10 16:32:00 FINAL REPORT CTA carotids and brain 11/10/2018 4:29 PM CLINICAL INDICATION: TIA COMPARISON: None available TECHNIQUE: Noncontrast axial CT images of the head were obtained. Subsequently, axial CT angiographic images of the upper chest, neck, and head were obtained, from which three-dimensional reconstructed images were created. Additional imaging series were created on an independent workstation using maximum intensity projection and volume rendered technique. This examination was performed according to our departmental dose optimization program, which includes automated exposure control, adjustment of the mA and/or kV according to patient size, and/or use of iterated reconstruction technique. FINDINGS: There is no intracranial hemorrhage, mass, hydrocephalus, extra-axial collection, or midline shift. There is no CT evidence for cerebral infarction. Patient motion and poor contrast bolus timing limit this examination. Pathology may be obscured. With these limitations in mind, there is no vessel occlusion in the intracranial or extracranial arterial vasculature. There is no NASCET quantifiable cervical internal carotid artery stenosis. There is no remarkable stenosis elsewhere in the intracranial or extracranial arterial vasculature. There is a 27 mm mixed cystic/solid lesion in the dorsal left lobe of the thyroid gland. The remaining visualized soft tissue and skeleton are without worrisome finding. IMPRESSION: 1. Limited, but otherwise unremarkable intracranial and extracranial CTAs. 2. Indeterminate left thyroid lesion, for which further evaluation with ultrasound is recommended Signed: Twan Beckwithort Verified Date/Time: 11/10/2018 16:32:54 Reading Location: [facility] Radiology Reading Room , CAROTID, ANGIO 2018-11-10 16:32:00 FINAL REPORT CTA carotids and brain 11/10/2018 4:29 PM CLINICAL INDICATION: TIA COMPARISON: None available TECHNIQUE: Noncontrast axial CT images of the head were obtained. Subsequently, axial CT angiographic images of the upper chest, neck, and head were obtained, from which three-dimensional reconstructed images were created. Additional imaging series were created on an independent workstation using maximum intensity projection and volume rendered technique. This examination was performed according to our departmental dose optimization program, which includes automated exposure control, adjustment of the mA and/or kV according to patient size, and/or use of iterated reconstruction technique. FINDINGS: There is no intracranial hemorrhage, mass, hydrocephalus, extra-axial collection, or midline shift. There is no CT evidence for cerebral infarction. Patient motion and poor contrast bolus timing limit this examination. Pathology may be obscured. With these limitations in mind, there is no vessel occlusion in the intracranial or extracranial arterial vasculature. There is no NASCET quantifiable cervical internal carotid artery stenosis. There is no remarkable stenosis elsewhere in the intracranial or extracranial arterial vasculature. There is a 27 mm mixed cystic/solid lesion in the dorsal left lobe of the thyroid gland. The remaining visualized soft tissue and skeleton are without worrisome finding. IMPRESSION: 1. Limited, but otherwise unremarkable intracranial and extracranial CTAs. 2. Indeterminate left thyroid lesion, for which further evaluation with ultrasound is recommended Signed: Twan Beckwith Verified Date/Time: 11/10/2018 16:32:54 Reading Location: [facility] Radiology Reading Room GLOBIN A1C 2018-11-10 11:14:00 Test Item Value Reference Range Comments HEMOGLOBIN A1C (BEAKER) (test zngg=881) 4.8 % 4.3-6.1 VITAMIN B12 AND [id number] 02:22:00 Test Item Value Reference Range Comments VITAMIN B12 (BEAKER) (test mkmd=362) 327 pg/mL 213-816 FOLATE (BEAKER) (test trpe=152) 11.9 ng/mL >=7.0 TSH/FREE T4 IF [id number] 00:10:00 Test Item Value Reference Range Comments THYROID STIMULATING HORMONE (BEAKER) (test 1.73 uIU/mL 0.35-4.94 ohzh=491) TROPONIN [id number] 23:55:00 Test Item Value Reference Range Comments TROPONIN I (BEAKER) (test xesv=481) < ng/mL 0.00-0.03 Troponin I (TnI) levels must be interpreted in the context of the presenting symptoms and the clinical findings. Elevated TnI levels indicate myocardial damage, but are not specific for ischemic heart disease. Elevated TnI levels are seen in patients with other cardiac conditions (including myocarditis and congestive heart failure), and slight TnI elevations occur in patients with other conditions, including sepsis, renal failure, acidosis, acute neurological disease, and persistent tachyarrhythmia.[id number] 23:49:00 Test Item Value Reference Range Comments MAGNESIUM (BEAKER) (test azwj=475) 2.0 mg/dL 1.6-2.6 BASIC METABOLIC [id number] 23:49:00 Test Item Value Reference Range Comments SODIUM (BEAKER) (test 139 meq/L 136-145 pafz=073) POTASSIUM (BEAKER) (test 3.3 meq/L 3.5-5.1 oqgg=943) CHLORIDE (BEAKER) (test 106 meq/L 98-107 ecob=480) CO2 (BEAKER) (test 24 meq/L 22-29 fcsz=929) BLOOD UREA NITROGEN 7 mg/dL 7-21 (BEAKER) (test tsho=971) CREATININE (BEAKER) (test 0.71 mg/dL 0.57-1.25 hrnr=874) GLUCOSE RANDOM (BEAKER) 125 mg/dL 70-105 (test ufyz=877) CALCIUM (BEAKER) (test 9.2 mg/dL 8.4-10.2 mykl=021) EGFR (BEAKER) (test 90 mL/min/1.73 sq m ESTIMATED GFR IS NOT mdmd=3213) ACCURATE CREATININE CLEARANCE IN PREDICTING GLOMERULAR FILTRATION RATE. ESTIMATED GFR IS NOT APPLICABLE FOR DIALYSIS PATIENTS. LIPID [id number] 23:49:00 Test Item Value Reference Range Comments TRIGLYCERIDES (BEAKER) (test lkhu=426) 93 mg/dL CHOLESTEROL (BEAKER) (test nami=267) 214 mg/dL HDL CHOLESTEROL (BEAKER) (test qdbc=037) 55 mg/dL LDL CHOLESTEROL CALCULATED (BEAKER) (test 140 mg/dL otwe=418) Triglyceride Reference Range: Low Risk <150 Borderline 150- 199 High Risk 200-499 Very High Risk >=500Cholesterol Reference Range: Low Risk <200 Borderline 200-239 High Risk > 240HDL Cholesterol Reference Range: Low Risk >=60 High Risk <40LDL Cholesterol Reference Range: Optimal <100 Near Optimal 100-129 Borderline 130-159 High 160-189 Very High >=190HEPATIC FUNCTION [id number] 23:49:00 Test Item Value Reference Range Comments TOTAL PROTEIN (BEAKER) (test drlk=983) 6.8 gm/dL 6.0-8.3 ALBUMIN (BEAKER) (test qkzk=0906) 3.8 g/dL 3.5-5.0 BILIRUBIN TOTAL (BEAKER) (test ttrk=850) 0.7 mg/dL 0.2-1.2 BILIRUBIN DIRECT (BEAKER) (test jrxk=306) 0.2 mg/dL 0.1-0.5 ALKALINE PHOSPHATASE (BEAKER) (test nekr=879) 63 U/L 40-150 AST (SGOT) (BEAKER) (test cfhx=431) 14 U/L 5-34 ALT (SGPT) (BEAKER) (test mpje=458) 12 U/L 6-55 SCREEN, [id number] 23:37:00 Test Item Value Reference Range Comments TEST URINE (BEAKER) (test nidt=583) Negative PT/[id number] 23:36:00 Test Item Value Reference Range Comments PROTIME (BEAKER) (test hnmw=740) 13.9 seconds 11.7-14.7 INR (BEAKER) (test ukde=940) 1.1 <=5.9 PARTIAL THROMBOPLASTIN TIME (BEAKER) (test 29.0 seconds 22.5-36.0 xjwi=907) RECOMMENDED COUMADIN/WARFARIN INR THERAPY RANGESSTANDARD DOSE: 2.0 - 3.0 Includes: PROPHYLAXIS forvenous thrombosis, systemic embolization; TREATMENT for venous thrombosis and/or pulmonary embolus.HIGH RISK: Target INR is 2.5-3.5 for patients with mechanical heart valves.CBC W/PLT COUNT & AUTO [id number] 23:27:00 Test Item Value Reference Range Comments WHITE BLOOD CELL COUNT (BEAKER) (test mwjt=060) 7.7 K/ L 3.5-10.5 RED BLOOD CELL COUNT (BEAKER) (test drsn=956) 3.99 M/ L 3.93-5.22 HEMOGLOBIN (BEAKER) (test gine=501) 12.3 GM/DL 11.2-15.7 HEMATOCRIT (BEAKER) (test qbig=443) 36.7 % 34.1-44.9 MEAN CORPUSCULAR VOLUME (BEAKER) (test oucb=413) 92.0 fL 79.4-94.8 MEAN CORPUSCULAR HEMOGLOBIN (BEAKER) (test 30.8 pg 25.6-32.2 ljep=454) MEAN CORPUSCULAR HEMOGLOBIN CONC (BEAKER) (test 33.5 GM/DL 32.2-35.5 yufg=710) RED CELL DISTRIBUTION WIDTH (BEAKER) (test 13.9 % 11.7-14.4 wdyi=454) PLATELET COUNT (BEAKER) (test fzwx=902) 304 K/CU MM 150-450 MEAN PLATELET VOLUME (BEAKER) (test frwa=184) 9.3 fL 9.4-12.3 NUCLEATED RED BLOOD CELLS (BEAKER) (test 0 /100 WBC 0-0 iram=809) NEUTROPHILS RELATIVE PERCENT (BEAKER) (test 64 % aafi=737) LYMPHOCYTES RELATIVE PERCENT (BEAKER) (test 29 % rbmn=281) MONOCYTES RELATIVE PERCENT (BEAKER) (test 5 % qtog=274) EOSINOPHILS RELATIVE PERCENT (BEAKER) (test 1 % xrce=762) BASOPHILS RELATIVE PERCENT (BEAKER) (test 1 % wctz=334) NEUTROPHILS ABSOLUTE COUNT (BEAKER) (test 4.89 K/ L 1.56-6.13 evjf=000) LYMPHOCYTES ABSOLUTE COUNT (BEAKER) (test 2.25 K/ L 1.18-3.74 ynmg=762) MONOCYTES ABSOLUTE COUNT (BEAKER) (test 0.40 K/ L 0.24-0.36 bmca=745) EOSINOPHILS ABSOLUTE COUNT (BEAKER) (test 0.07 K/ L 0.04-0.36 kfqb=238) BASOPHILS ABSOLUTE COUNT (BEAKER) (test 0.04 K/ L 0.01-0.08 hxus=645) IMMATURE GRANULOCYTES-RELATIVE PERCENT (BEAKER) 1 % 0-1 (test hwst=3453)
--- OUTSIDE RECORDS SUMMARY | 2018-12-11 09:32 | XMS REPORT | Clinical Summary ---
:1975 Author Organization [facility] Address [address] [place] [address] Care Team Providers Name Role Phone Unavailable Primary Care Provider Unavailable Allergies Active Allergy Reactions Severity Noted Date Comments Sulfamethoxazole-Trimethoprim Rash Medium 11/09/2018 Medications Medication Sig Dispensed Refills Start Date End Date Status ALPRAZolam (XANAX) 0.5 Take 0.5 mg by 0 Active MG tablet mouth as needed for Anxiety. aspirin 81 MG chewable Take 1 tablet 30 tablet 0 11/11/2018 11/11/2019 Active tablet (81 mg total) by mouth daily. atorvastatin (LIPITOR) Take 1 tablet 30 tablet 0 11/10/2018 11/10/2019 Active 20 MG tablet (20 mg total) by mouth nightly. Active Problems Problem Noted Date Numbness and tingling of left arm and leg 11/09/2018 Left facial numbness 11/09/2018 Encounters Date Type Specialty Care Team Description 11/09/2018 - Hospital Encounter Cardiology Ava Fajardo Left facial numbness; 11/10/2018 MD Kerry Numbness and tingling of left arm and leg; Edelmira Almazan Smoker; Meagan Serrato, Stress at home Neelam Klein MD after 12/10/2017 Family History Medical History Relation Name Comments Stroke Maternal Grandmother Relation Name Status Comments Maternal Grandmother Social History Tobacco Use Types Packs/Day Years Used Date Current Every Day Smoker 1 20 Smokeless Tobacco: Never Used Tobacco Cessation: Counseling Given: Yes Alcohol Use Drinks/Week oz/Week Comments Yes Social, moderate Alcohol Habits Answer Date Recorded How often do you have a drink containing alcohol? Never 11/09/2018 How many drinks containing alcohol do you have on a typical Not asked day when you are drinking? How often do you have six or more drinks on one occasion? Not asked Sex Assigned at Date Recorded Not on file Job Start Date Occupation Industry Not on file Not on file Not on file Travel History Travel Start Travel End No recent travel history available. Last Filed Vital Signs Vital Sign Reading Time Taken Blood Pressure 106/58 11/10/2018 3:00 PM [employer] Pulse 76 11/10/2018 3:00 PM [employer] Temperature 36.2 C (97.2 F) 11/10/2018 3:00 PM [employer] Respiratory Rate 18 11/10/2018 3:00 PM [employer] Oxygen Saturation 99% 11/10/2018 3:00 PM [employer] Inhaled Oxygen Concentration - - Weight - - Height - - Body Mass Index - - Plan of Treatment Not on file Procedures Procedure Name Priority Date/Time Associated Comments Diagnosis CT/CTA CAROTID Routine 11/10/2018 4:21 Results for this PM [employer] procedure are in the results section. CT/CTA BRAIN Routine 11/10/2018 4:21 Results for this PM [employer] procedure are in the results section. SCREEN, Routine 11/09/2018 11:15 Results for this URINE PM [employer] procedure are in the results section. CBC W/PLT COUNT & Routine 11/09/2018 11:14 Results for this AUTO DIFFERENTIAL PM [employer] procedure are in the results section. TROPONIN I Routine 11/09/2018 11:14 Results for this PM [employer] procedure are in the results section. VITAMIN B12 AND Routine 11/09/2018 11:14 Results for this FOLATE PM [employer] procedure are in the results section. TSH/FREE T4 IF Routine 11/09/2018 11:14 Results for this INDICATED PM [employer] procedure are in the results section. CBC W/PLT COUNT & Routine 11/09/2018 11:14 Results for this AUTO DIFFERENTIAL PM [employer] procedure are in the results section. MAGNESIUM Routine 11/09/2018 11:14 Results for this PM [employer] procedure are in the results section. LIPID PANEL Routine 11/09/2018 11:14 Results for this PM [employer] procedure are in the results section. PT/APTT Routine 11/09/2018 11:14 Results for this PM [employer] procedure are in the results section. HEMOGLOBIN A1C Routine 11/09/2018 11:14 Results for this PM [employer] procedure are in the results section. HEPATIC FUNCTION Routine 11/09/2018 11:14 Results for this PANEL PM [employer] procedure are in the results section. BASIC METABOLIC PANEL Routine 11/09/2018 11:14 Results for this (7) PM [employer] procedure are in the results section. ECG 12-LEAD Routine 11/09/2018 10:19 Results for this PM [employer] procedure are in the results section. after 12/10/2017 Results CTA carotid (11/10/2018 4:21 PM [employer]ODUCT [employer]INEER) Narrative Performed At FINAL REPORT [facility] CTA carotids and brain 11/10/2018 4:29 PM [...] with ultrasound is recommended Signed: Twan Beckwith MD Report Verified Date/Time:11/10/2018 16:32:54 Reading Location: [facility] Radiology Reading Room Procedure Note Interface, External Ris In - 11/10/2018 4:35 PM [employer] FINAL REPORT CTA carotids and brain 11/10/2018 [...] with ultrasound is recommended Signed: Twan Beckwith MD Report Verified Date/Time: 11/10/2018 16:32:54 Reading Location: [facility] Radiology Reading Room Performing Organization Address City/State/Zipcode Phone Number [facility] CTA brain (11/10/2018 4:21 PM [employer]) Narrative Performed At FINAL REPORT [facility] CTA carotids and brain 11/10/2018 4:29 PM [...] with ultrasound is recommended Signed: Twan Beckwith MD Report Verified Date/Time:11/10/2018 16:32:54 Reading Location: [facility] Radiology Reading Room Procedure Note Interface, External Ris In - 11/10/2018 4:35 PM [employer] FINAL REPORT CTA carotids and brain 11/10/2018 [...] with ultrasound is recommended Signed: Twan Beckwith MD Report Verified Date/Time: 11/10/2018 16:32:54 Reading Location: [facility] Radiology Reading Room Performing Organization Address City/[facility] Phone Number GE RIS Screen, urine (11/09/2018 11:15 PM [employer]) Preg Test, Ur Negative [facility] Specimen Urine Performing Organization Address [facility] Phone Number [address] [address] [phone] CENTER Vitamin B12 and Folate (11/09/2018 11:14 PM [employer]) Vitamin B12 327 213 - 816 pg/mL [facility] Folate 11.9 >=7.0 ng/mL [facility] Specimen Blood Performing Organization Address [facility] Phone Number [address] [address] CENTER TSH/Free T4 If Indicated (11/09/2018 11:14 PM [employer]) TSH 1.73 0.35 - 4.94 uIU/mL [facility] Specimen Blood Performing Organization Address [facility] Phone Number [address] [address] CENTER PT/aPTT (11/09/2018 11:14 PM [employer]) Protime 13.9 11.7 - 14.7 seconds [facility] INR 1.1 <=5.9 [facility] PTT 29.0 22.5 - 36.0 seconds [facility] Specimen Blood Narrative Performed At RECOMMENDED COUMADIN/WARFARIN INR THERAPY [facility] RANGES STANDARD DOSE: 2.0 - 3.0 Includes: PROPHYLAXIS for venous thrombosis, systemic embolization; TREATMENT for venous thrombosis and/or pulmonary embolus. HIGH RISK: Target INR is 2.5-3.5 for patients with mechanical heart valves. Performing Organization Address City/State/Zipcode Phone Number [facility] [address] [place] [address] [phone] CENTER CBC with platelet count + automated diff (11/09/2018 11:14 PM [employer]ER) WBC 7.7 3.5 - 10.5 K/L [facility] RBC 3.99 3.93 - 5.22 M/L [facility] Hemoglobin 12.3 11.2 - 15.7 GM/DL [facility] Hematocrit 36.7 34.1 - 44.9 % [facility] MCV 92.0 79.4 - 94.8 fL [facility] MCH 30.8 25.6 - 32.2 pg [facility] MCHC 33.5 32.2 - 35.5 GM/DL [facility] RDW 13.9 11.7 - 14.4 % [facility] Platelets 304 150 - 450 K/CU MM [facility] MPV 9.3 (L) 9.4 - 12.3 fL [facility] nRBC 0 0 - 0 /100 WBC [facility] % Neutros 64 % [facility] % Lymphs 29 % [facility] % Monos 5 % [facility] % Eos 1 % [facility] % Baso 1 % [facility] # Neutros 4.89 1.56 - 6.13 K/L [facility] # Lymphs 2.25 1.18 - 3.74 K/L [facility] # Monos 0.40 (H) 0.24 - 0.36 K/L [facility] # Eos 0.07 0.04 - 0.36 K/L [facility] # Baso 0.04 0.01 - 0.08 K/L [facility] Immature Granulocytes-Relative 1 0 - 1 % [facility] Specimen Blood Performing Organization Address City/[facility] Phone Number [address] [address] [place] Troponin I (11/09/2018 11:14 PM [employer]ER) Troponin I <0.01 0.00 - 0.03 ng/mL [facility] Specimen Blood Narrative Performed At Troponin I (TnI) levels must be interpreted [facility] in the context of the presenting symptoms and the clinical findings. Elevated TnI levels indicate myocardial damage, but are not specific for ischemic heart disease. Elevated TnI levels are seen in patients with other cardiac conditions (including myocarditis and congestive heart failure), and slight TnI elevations occur in patients with other conditions, including sepsis, renal failure, acidosis, acute neurological disease, and persistent tachyarrhythmia. Performing Organization Address [facility] Phone Number [address] [address] CENTER Magnesium (11/09/2018 11:14 PM [employer]) Magnesium 2.0 1.6 - 2.6 mg/dL [facility] Specimen Blood Performing Organization Address City/[facility] Phone Number [address] [address] CENTER Hemoglobin A1c (11/09/2018 11:14 PM [employer]ER) Hemoglobin A1C 4.8 4.3 - 6.1 % [facility] Specimen Blood Performing Organization Address [facility] Phone Number [address] [address] [place] Hepatic function panel (11/09/2018 11:14 PM [employer]) Protein, Total 6.8 6.0 - 8.3 gm/dL [facility] Albumin 3.8 3.5 - 5.0 g/dL [facility] Total Bilirubin 0.7 0.2 - 1.2 mg/dL [facility] Bilirubin, Direct 0.2 0.1 - 0.5 mg/dL [facility] Alkaline Phosphatase 63 40 - 150 U/L [facility] AST 14 5 - 34 U/L [facility] ALT 12 6 - 55 U/L [facility] Specimen Blood Performing Organization Address [facility] Phone Number [address] [address] [place] Lipid panel (11/09/2018 11:14 PM [employer]ER) Triglycerides 93 mg/dL [facility] Cholesterol 214 mg/dL [facility] HDL 55 mg/dL [facility] LDL Calculated 140 mg/dL [facility] Specimen Blood Narrative Performed At Triglyceride Reference Range: [facility] Low Risk <150 [id number] High Risk 200-499 Very High Risk>=500 Cholesterol Reference Range: Low Risk <200 [id number] High Risk>240 HDL Cholesterol Reference Range: Low Risk >=60 High Risk <40 LDL Cholesterol Reference Range: Optimal<100 Near [id number] Xumb602-214 Very High >=190 Performing Organization Address City/[facility] Phone Number [address] [address] [phone] [place] Basic metabolic panel (11/09/2018 11:14 PM [employer]ER) Sodium 139 136 - 145 meq/L [facility] Potassium 3.3 (L) 3.5 - 5.1 meq/L [facility] Chloride 106 98 - 107 meq/L [facility] CO2 24 22 - 29 meq/L [facility] BUN 7 7 - 21 mg/dL [facility] Creatinine 0.71 0.57 - 1.25 mg/dL [facility] Glucose 125 (H) 70 - 105 mg/dL [facility] Calcium 9.2 8.4 - 10.2 mg/dL [facility] EGFR 90Comment: ESTIMATED GFR IS mL/min/1.73 sq m [facility] NOT ACCURATE CREATININE [facility] CLEARANCE IN PREDICTING GLOMERULAR FILTRATION RATE. ESTIMATED GFR IS NOT APPLICABLE FOR DIALYSIS PATIENTS. Specimen Blood Performing Organization Address City/State/Zipcode Phone Number [facility] [address] [place] [address] [phone] CENTER ECG 12 lead (11/09/2018 10:19 PM PRODUCT [employer] ENG[employer]ER) Narrative Performed At Ventricular Rate 65 BPM GE MUSE Atrial Rate 65 BPM P-R Interval 144 ms QRS Duration 92 ms Q-T Interval 408 ms QTC Calculation(Bazett) 424 ms P [place] 38 degrees R [place] 23 degrees T [place] -6 degrees Normal sinus rhythm Normal ECG When compared with ECG of 21-JAN-1996 12:05, Vent. rate has decreased BY37 BPM Questionable change in QRS duration Confirmed by Yanick Burch ([id number]) on 11/10/2018 6:50:05 PM Procedure Note Interface, External Ris In - 11/10/2018 6:50 PM [employer]ER Ventricular Rate 65 BPM Atrial Rate 65 BPM P-R Interval 144 ms QRS Duration 92 ms Q-T Interval 408 ms QTC Calculation(Bazett) 424 ms P [place] 38 degrees R [place] 23 degrees T [place] -6 degrees Normal sinus rhythm Normal ECG When compared with ECG of 21-JAN-1996 12:05, Vent. rate has decreased BY 37 BPM Questionable change in QRS duration Confirmed by Yanick Burch ([id number]) on 11/10/2018 6:50:05 PM Performing Organization Address City/State/Zipcode Phone Number [facility] after 12/10/2017 Insurance Payer Benefit Plan / Subscriber ID Type Phone Address Group BLUE CROSS/BLUE BCBS PPO POS EPO xxxxxxxxxxxx PPO [phone] [address] [place] [address] Advance Directives For more information, please contact:[address] [phone] Code Status Date Activated Date Inactivated Comments Full Code 11/09/2018 9:58 PM This code status was determined by: Patient
--- OUTSIDE RECORDS SUMMARY | 2018-12-11 09:32 | XMS REPORT ---
:1975 Author Organization [employer] Care Team Providers Name Role Phone Sarah Euceda Provider Role Unavailable Allergies, Adverse Reactions, Alerts Substance Reaction Event Type Bactrim rash Drug Allergy Problems Problem Type Condition Code Onset Dates Condition Status Problem Thyroid lesion E07.89 Active Problem Anxiety F41.9 Active Assessment Thyroid lesion E07.89 Active Assessment Anxiety F41.9 Active Medications Medication Code Code Instructions Start End Status Dosage System Date Date Aspirin Adult [facility] 79951136058 81 MG Orally Active 1 tablet Low Strength Once a day atorvastatin [facility] [id number] 20mg Active 1 tablet by mouth at bedtime Results No Known Results Summary Purpose [employer]Works Submission
--- NOTE | 2018-12-11 11:02 | RAD REPORT ---
EXAM DESCRIPTION: US - Guided FNA Non Breast - 12/11/2018 10:26 am CLINICAL HISTORY: Thyroid nodule ICD E07.9 COMPARISON: November 28, 2018 ultrasound TECHNIQUE: Risks, benefits and alternatives of procedure explained to the patient and informed conse nt obtained. Skin and subcutaneous tissues anesthetized with lidocaine. Under sonographic guidance, five 25 gauge needle passes were obtained into the dominant nodule within the left lobe of the thyroid gland. Specimens given to pathology. Patient experienced no immediate complication IMPRESSION: Fine-needle aspiration of a dominant nodule within left lobe of thyroid gland
== END ==
LOC: FNA 09:29
PROVIDERS: ATTEND Nurse Practitioner Family
DX: E04.1 Nontoxic single thyroid nodule (principal)
CPT/HCPCS: 88162; 88305

== ENCOUNTER 2019-11-15 06:17 | Emergency (ER) | payer BC ==
--- OUTSIDE RECORDS SUMMARY | 2019-11-15 06:19 | XMS REPORT ---
:1975 Author Organization [employer] Care Team Providers Name Role Phone Sarah Euceda Provider Role Unavailable Allergies No Known Allergies Problems Problem Type Condition Code Onset Dates Condition Status Problem Thyroid lesion E07.89 Active Problem Anxiety F41.9 Active Problem Thyroid mass E07.9 Active Problem Hyperthyroidism E05.90 Active Problem Abnormal thyroid biopsy R89.9 Active Medications No Known Medications Results No Known Results Summary Purpose [employer]ClinicalWorks Submission
--- OUTSIDE RECORDS SUMMARY | 2019-11-15 06:19 | XMS REPORT ---
:1975 [facility] Address [address] [place] [address] Care Team Providers Name Role Phone YOLY [...] Beckwith Verified Date/Time: 11/10/2018 16:32:54 Reading Location: [facility] Radiology Reading Room , CAROTID, ANGIO 2018-11-10 [...] Beckwith Verified Date/Time: 11/10/2018 16:32:54 Reading Location: [facility] Radiology Reading Room GLOBIN A1C 2018-11-10 11:14:00 Test Item Value Reference Range Comments HEMOGLOBIN A1C (BEAKER) (test csrr=033) 4.8 % 4.3-6.1 VITAMIN B12 AND [id number] 02:22:00 Test Item Value Reference Range Comments VITAMIN B12 (BEAKER) (test kovd=446) 327 pg/mL 213-816 FOLATE (BEAKER) (test doer=063) 11.9 ng/mL >=7.0 TSH/FREE T4 IF [id number] 00:10:00 Test Item Value Reference Range Comments THYROID STIMULATING HORMONE (BEAKER) (test 1.73 uIU/mL 0.35-4.94 vjtz=332) TROPONIN [id number] 23:55:00 Test Item Value Reference Range Comments TROPONIN I (BEAKER) (test xjou=269) < ng/mL 0.00-0.03 Troponin I (TnI) levels [...] failure, acidosis, acute neurological disease, and persistent tachyarrhythmia.[id number] 23:49:00 Test Item Value Reference Range Comments MAGNESIUM (BEAKER) (test ugso=950) 2.0 mg/dL 1.6-2.6 BASIC METABOLIC [id number] 23:49:00 Test Item Value Reference Range Comments SODIUM (BEAKER) (test 139 meq/L 136-145 hvrw=119) POTASSIUM (BEAKER) (test 3.3 meq/L 3.5-5.1 pxys=043) CHLORIDE (BEAKER) (test 106 meq/L 98-107 gdxq=730) CO2 (BEAKER) (test 24 meq/L 22-29 tzky=453) BLOOD UREA NITROGEN 7 mg/dL 7-21 (BEAKER) (test bflj=838) CREATININE (BEAKER) (test 0.71 mg/dL 0.57-1.25 tqau=992) GLUCOSE RANDOM (BEAKER) 125 mg/dL 70-105 (test litq=578) CALCIUM (BEAKER) (test 9.2 mg/dL 8.4-10.2 whsb=696) EGFR (BEAKER) (test 90 mL/min/1.73 sq m ESTIMATED GFR IS NOT kkqv=4864) ACCURATE CREATININE CLEARANCE IN PREDICTING GLOMERULAR FILTRATION RATE. ESTIMATED GFR IS NOT APPLICABLE FOR DIALYSIS PATIENTS. LIPID [id number] 23:49:00 Test Item Value Reference Range Comments TRIGLYCERIDES (BEAKER) (test jhrk=707) 93 mg/dL CHOLESTEROL (BEAKER) (test scdx=454) 214 mg/dL HDL CHOLESTEROL (BEAKER) (test oekx=163) 55 mg/dL LDL CHOLESTEROL CALCULATED (BEAKER) (test 140 mg/dL zcnn=200) Triglyceride Reference Range: Low Risk <150 Borderline 150- 199 High Risk 200-499 Very High Risk >=500Cholesterol Reference Range: Low Risk <200 Borderline 200-239 High Risk > 240HDL Cholesterol Reference Range: Low Risk >=60 High Risk <40LDL Cholesterol Reference Range: Optimal <100 Near Optimal 100-129 Borderline 130-159 High 160-189 Very High >=190HEPATIC FUNCTION [id number] 23:49:00 Test Item Value Reference Range Comments TOTAL PROTEIN (BEAKER) (test fgra=098) 6.8 gm/dL 6.0-8.3 ALBUMIN (BEAKER) (test pkck=2602) 3.8 g/dL 3.5-5.0 BILIRUBIN TOTAL (BEAKER) (test yehe=926) 0.7 mg/dL 0.2-1.2 BILIRUBIN DIRECT (BEAKER) (test jupw=264) 0.2 mg/dL 0.1-0.5 ALKALINE PHOSPHATASE (BEAKER) (test kplt=753) 63 U/L 40-150 AST (SGOT) (BEAKER) (test ndzf=754) 14 U/L 5-34 ALT (SGPT) (BEAKER) (test afip=061) 12 U/L 6-55 SCREEN, [id number] 23:37:00 Test Item Value Reference Range Comments TEST URINE (BEAKER) (test fwhw=524) Negative [id number] 23:36:00 Test Item Value Reference Range Comments PROTIME (BEAKER) (test jgwk=922) 13.9 seconds 11.7-14.7 INR (BEAKER) (test btac=384) 1.1 <=5.9 PARTIAL THROMBOPLASTIN TIME (BEAKER) (test 29.0 seconds 22.5-36.0 zqnq=229) RECOMMENDED COUMADIN/WARFARIN INR THERAPY RANGESSTANDARD DOSE: 2.0 - 3.0 Includes: PROPHYLAXIS forvenous thrombosis, systemic embolization; TREATMENT for venous thrombosis and/or pulmonary embolus.HIGH RISK: Target INR is 2.5-3.5 for patients with mechanical heart valves.CBC W/PLT COUNT & AUTO [id number] 23:27:00 Test Item Value Reference Range Comments WHITE BLOOD CELL COUNT (BEAKER) (test wpvr=858) 7.7 K/ L 3.5-10.5 RED BLOOD CELL COUNT (BEAKER) (test gukr=662) 3.99 M/ L 3.93-5.22 HEMOGLOBIN (BEAKER) (test joxx=401) 12.3 GM/DL 11.2-15.7 HEMATOCRIT (BEAKER) (test dxab=167) 36.7 % 34.1-44.9 MEAN CORPUSCULAR VOLUME (BEAKER) (test yijr=899) 92.0 fL 79.4-94.8 MEAN CORPUSCULAR HEMOGLOBIN (BEAKER) (test 30.8 pg 25.6-32.2 jjdg=839) MEAN CORPUSCULAR HEMOGLOBIN CONC (BEAKER) (test 33.5 GM/DL 32.2-35.5 otbr=762) RED CELL DISTRIBUTION WIDTH (BEAKER) (test 13.9 % 11.7-14.4 lnwc=145) PLATELET COUNT (BEAKER) (test aerx=392) 304 K/CU MM 150-450 MEAN PLATELET VOLUME (BEAKER) (test wxlt=178) 9.3 fL 9.4-12.3 NUCLEATED RED BLOOD CELLS (BEAKER) (test 0 /100 WBC 0-0 vvqn=988) NEUTROPHILS RELATIVE PERCENT (BEAKER) (test 64 % fpak=862) LYMPHOCYTES RELATIVE PERCENT (BEAKER) (test 29 % qvyd=744) MONOCYTES RELATIVE PERCENT (BEAKER) (test 5 % brkk=976) EOSINOPHILS RELATIVE PERCENT (BEAKER) (test 1 % pgzg=705) BASOPHILS RELATIVE PERCENT (BEAKER) (test 1 % vdpb=473) NEUTROPHILS ABSOLUTE COUNT (BEAKER) (test 4.89 K/ L 1.56-6.13 zysz=424) LYMPHOCYTES ABSOLUTE COUNT (BEAKER) (test 2.25 K/ L 1.18-3.74 opuz=778) MONOCYTES ABSOLUTE COUNT (BEAKER) (test 0.40 K/ L 0.24-0.36 wxhw=194) EOSINOPHILS ABSOLUTE COUNT (BEAKER) (test 0.07 K/ L 0.04-0.36 xpgn=958) BASOPHILS ABSOLUTE COUNT (BEAKER) (test 0.04 K/ L 0.01-0.08 ujwc=795) IMMATURE GRANULOCYTES-RELATIVE PERCENT (BEAKER) 1 % 0-1 (test ruuh=0127)
--- OUTSIDE RECORDS SUMMARY | 2019-11-15 06:19 | XMS REPORT ---
[...] Status Dosage System Date Date Aspirin Adult [facility] [id number] 81 MG Orally Active 1 tablet Low Strength Once a day atorvastatin [facility] [id number] 20mg Active 1 tablet by mouth at bedtime Results No Known Results Summary Purpose [employer]ClinicalWorks Submission
[2019-11-15] MEDS ORDERED: HYDROCODONE/APAP 10/325 TAB ONE (07:02)
--- NOTE | 2019-11-15 07:33 | ER ---
Nurse's Notes [facility] Name: Lorie De Los Santos Age: 44 yrs Sex: Female : 1975 Arrival Date: 11/15/2019 Time: 06:20 Bed 14 Private MD: Diagnosis: Sprain of foot;Contusion of left knee Presentation: 11/15 06:27 Presenting complaint: Patient states: she was at [facility] in [place] and slipped on bb something on the pavement and fell bruising her left leg and foot she denies hitting her head or any LOC, pt states the pain has just gotten worse and she can't sleep, she took Advil [address] Transition of care: patient was not received from another setting of care. Onset of symptoms was November 15, 2019. Risk Assessment: Do you want to hurt yourself or someone else? Patient reports no desire to harm self or others. Initial Sepsis Screen: Does the patient meet any 2 criteria? No. Patient's initial sepsis screen is negative. Does the patient have a suspected source of infection? No. Patient's initial sepsis screen is negative. Care prior to arrival: None. 06:27 Method Of Arrival: Ambulatory bb 06:27 Acuity: BORA 4 bb Historical: - Allergies: 06:30 No Known Allergies; bb - Home Meds: 06:30 None [Active]; bb - PMHx: 06:30 thyroid nodule (not malignant); bb - PSHx: 06:30 Cholecystectomy; Tubal ligation; bb - Immunization history:: Adult Immunizations up to date, Flu vaccine is not up to date. - Coronavirus screen:: The patient has NOT traveled to [place] in the past 14 days. Proceed with normal triage process as indicated. - Social history:: Smoking status: Patient reports the use of cigarette tobacco products, smokes one pack cigarettes per day. Patient uses alcohol, occasionally. - Ebola Screening: : No symptoms or risks identified at this time. Screenin:30 Abuse screen: Denies threats or abuse. Denies injuries from another. Nutritional rr5 screening: No deficits noted. Tuberculosis screening: No symptoms or risk factors identified. Fall Risk Fall in past 12 months (25 points). Gait- Impaired (20 pts.). Total Ahmadi Fall Scale indicates High Risk Score (45 or more points). Fall prevention measures have been instituted. Side Rails Up X 2 Frequent Obs/Assessments Occuring As available patient and family educated on Fall Prevention Program and Strategies. Assessment: 06:30 General: Appears in no apparent distress. uncomfortable, Behavior is calm, cooperative, rr5 appropriate for age. 06:30 Pain: Complains of pain in left lateral ankle, left knee and anterior aspect of left rr5 ankle Pain radiates to left leg Pain currently is 8 out of 10 on a pain scale. Quality of pain is described as aching, Pain began suddenly, Is intermittent. Neuro: Level of Consciousness is awake, alert, obeys commands, Oriented to person, place, time, situation, Appropriate for age. Cardiovascular: Capillary refill < 3 seconds Patient's skin is warm and dry. Respiratory: Airway is patent Respiratory effort is even, unlabored, Respiratory pattern is regular, symmetrical. GI: No signs and/or symptoms were reported involving the gastrointestinal system. : No signs and/or symptoms were reported regarding the genitourinary system. EENT: No signs and/or symptoms were reported regarding the EENT system. Derm: Skin is intact, Skin temperature is warm Bruising that is dark purple, on left knee. Musculoskeletal: Swelling present in left lateral ankle and anterior aspect of left ankle. 07:00 Reassessment: Patient appears in no apparent distress at this time. Pain: Complains of jl7 pain in dorsum of left foot and left knee Pain currently is 7 out of 10 on a pain scale. Neuro: Oriented to person, place, time, situation. Cardiovascular: Patient's skin is warm and dry. Respiratory: Airway is patent Respiratory effort is even, unlabored, Respiratory pattern is regular, symmetrical. Derm: Skin is pink, warm \T\ dry. Bruising that is dark purple, on dorsum of left foot and left knee. 07:30 Reassessment: Patient appears in no apparent distress at this time. Patient states jl7 feeling better. Vital Signs: 06:30 BP 123 / 83; Pulse 111; Resp 16 S; Temp 97.6(O); Pulse Ox 98% on R/A; Weight 83.91 kg bb (R); Height 5 ft. 7 in. (170.18 cm) (R); Pain 8/10; 06:30 Body Mass Index 28.97 (83.91 kg, 170.18 cm) bb ED Course: 06:20 Patient arrived in ED. ag3 06:21 Damián Bailey PA is PHCP. jr8 06:21 Cody Mcnamara MD is Attending Physician. jr8 06:29 Triage completed. bb 06:30 Arm band placed on Patient placed in an exam room, on a stretcher, on pulse oximetry. bb Affected limb iced. 06:30 Patient has correct armband on for positive identification. Bed in low position. Call rr5 light in reach. Pulse ox on. NIBP on. 06:51 Efraín Kwan, RN is Primary Nurse. rr5 07:55 No provider procedures requiring assistance completed. Patient did not have IV access jl7 during this emergency room visit. Administered Medications: 07:00 Drug: [place] 10 mg-325 mg 1 tabs {Note: rass 0.} Route: PO; rr5 07:30 Follow up: Response: No adverse reaction; Pain is decreased jl7 Outcome: 07:33 Discharge ordered by MD. jr8 07:55 Discharged to home ambulatory, with crutches, with family. jl7 07:55 Condition: stable 07:55 Discharge instructions given to patient, family, Instructed on discharge instructions, follow up and referral plans. medication usage, Demonstrated understanding of instructions, follow-up care, medications, Prescriptions given X 2. 08:02 Patient left the ED. jl7 Signatures: Neli Zaragoza, RN RN Damián Camacho PA PA jr8 Sofía Ba RN RN jl7 Ayana Flowers 3 Efraín Kwan, RN RN rr5
--- NOTE | 2019-11-15 07:33 | EDPHYS ---
Physician Documentation [facility] Name: Lorie De Los Santos Age: 44 yrs Sex: Female : 1975 Arrival Date: 11/15/2019 Time: 06:20 Bed 14 Private MD: ED Physician Cody Mcnamara HPI: 11/15 06:32 This 44 yrs old Female presents to ER via Ambulatory with complaints of Foot jr8 Injury. 06:32 Onset: The symptoms/episode began/occurred acutely, last night. Modifying factors: The jr8 symptoms are alleviated by nothing. the symptoms are aggravated by movement, weight bearing. Associated signs and symptoms: The patient has no apparent associated signs or symptoms. Severity of symptoms: At their worst the symptoms were moderate, in the emergency department the symptoms are unchanged. The patient has not experienced similar symptoms in the past. The patient has not recently seen a physician. Patient stated that she was at [employer] [facility] and stepped on a ball in the street on accident causing her to roll foot and fall. Pain to foot and knee since injury that is not getting better . Historical: - Allergies: 06:30 No Known Allergies; bb - Home Meds: 06:30 None [Active]; bb - PMHx: 06:30 thyroid nodule (not malignant); bb - PSHx: 06:30 Cholecystectomy; Tubal ligation; bb - Immunization history:: Adult Immunizations up to date, Flu vaccine is not up to date. - Coronavirus screen:: The patient has NOT traveled to [place] in the past 14 days. Proceed with normal triage process as indicated. - Social history:: Smoking status: Patient reports the use of cigarette tobacco products, smokes one pack cigarettes per day. Patient uses alcohol, occasionally. - Ebola Screening: : No symptoms or risks identified at this time. ROS: 06:32 Eyes: Negative for injury, pain, redness, and discharge, ENT: Negative for injury, jr8 pain, and discharge, Neck: Negative for injury, pain, and swelling, Cardiovascular: Negative for chest pain, palpitations, and edema, Respiratory: Negative for shortness of breath, cough, wheezing, and pleuritic chest pain, Abdomen/GI: Negative for abdominal pain, nausea, vomiting, diarrhea, and constipation, Back: Negative for injury and pain, Skin: Negative for injury, rash, and discoloration, Neuro: Negative for headache, weakness, numbness, tingling, and seizure. 06:32 MS/extremity: Positive for ecchymosis, pain, swelling, tenderness, of the left foot and knee. Exam: 06:32 Head/Face: Normocephalic, atraumatic. Eyes: Pupils equal round and reactive to light, jr8 extra-ocular motions intact. Lids and lashes normal. Conjunctiva and sclera are non-icteric and not injected. Cornea within normal limits. Periorbital areas with no swelling, redness, or edema. ENT: Nares patent. No nasal discharge, no septal abnormalities noted. Tympanic membranes are normal and external auditory canals are clear. Oropharynx with no redness, swelling, or masses, exudates, or evidence of obstruction, uvula midline. Mucous membranes moist. Neck: Trachea midline, no thyromegaly or masses palpated, and no cervical lymphadenopathy. Supple, full range of motion without nuchal rigidity, or vertebral point tenderness. No Meningismus. Chest/axilla: Normal chest wall appearance and motion. Nontender with no deformity. No lesions are appreciated. Cardiovascular: Regular rate and rhythm with a normal S1 and S2. No gallops, murmurs, or rubs. Normal PMI, no JVD. No pulse deficits. Respiratory: Lungs have equal breath sounds bilaterally, clear to auscultation and percussion. No rales, rhonchi or wheezes noted. No increased work of breathing, no retractions or nasal flaring. Abdomen/GI: Soft, non-tender, with normal bowel sounds. No distension or tympany. No guarding or rebound. No evidence of tenderness throughout. Back: No spinal tenderness. No costovertebral tenderness. Full range of motion. Skin: Warm, dry with normal turgor. Normal color with no rashes, no lesions, and no evidence of cellulitis. Neuro: Awake and alert, GCS 15, oriented to person, place, time, and situation. Cranial nerves II-XII grossly intact. Motor strength 5/5 in all extremities. Sensory grossly intact. Cerebellar exam normal. Normal gait. 06:32 Musculoskeletal/extremity: Extremities: grossly normal except: noted in the left foot: Patient has hematoma with moderate tenderness to left dorsal foot nearest the cuboid bones. Decreased ROM secondary to pain. No other trauma noted , noted in the left knee: Patient has swelling with hematoma and bruising to left knee at the infrapatellar region. Tender to touch but with full ROM , Pulses: noted to be 2+ in the right radial artery, right posterior tibial artery, right dorsalis pedis artery, left radial artery, left posterior tibial artery and left dorsalis pedis artery, Sensation intact. Vital Signs: 06:30 BP 123 / 83; Pulse 111; Resp 16 S; Temp 97.6(O); Pulse Ox 98% on R/A; Weight 83.91 kg bb (R); Height 5 ft. 7 in. (170.18 cm) (R); Pain 8/10; 06:30 Body Mass Index 28.97 (83.91 kg, 170.18 cm) Procedures: 07:32 Splinting: Splint applied to left foot using leonardo wrap, applied by nurse. Examined by jr8 me, post splint application: neurovascular intact, 2+ distal pulses palpable, brisk capillary refill noted, Patient tolerated well. Crutch training provided to patient and/or family. Return demonstration given. MDM: 06:31 Patient medically screened. jr8 07:32 Data reviewed: vital signs, nurses notes, radiologic studies, plain films, and as a jr8 result, I will discharge patient. Data interpreted: Pulse oximetry: on room air is 98 %. Interpretation: normal. Counseling: I had a detailed discussion with the patient and/or guardian regarding: the historical points, exam findings, and any diagnostic results supporting the discharge/admit diagnosis, radiology results, the need for outpatient follow up, a orthopedic surgeon, to return to the emergency department if symptoms worsen or persist or if there are any questions or concerns that arise at home. 11/15 06:32 Order name: XRAY Foot LEFT 3 View jr8 11/15 06:32 Order name: XRAY Knee LEFT 3 view jr8 11/15 07:32 Order name: Leonardo wrap-joint; Complete Time: 08:00 jr8 11/15 07:32 Order name: Crutch Training; Complete Time: 08:00 jr8 11/15 07:32 Order name: Crutches; Complete Time: 08:00 jr8 Administered Medications: 07:00 Drug: [place] 10 mg-325 mg 1 tabs {Note: rass 0.} Route: PO; rr5 07:30 Follow up: Response: No adverse reaction; Pain is decreased jl7 Disposition: 11/16 07:43 Co-signature as Attending Physician, Cody Mcnamara MD I agree with the assessment and kdr plan of care. Disposition: 11/15/19 07:33 Discharged to Home. Impression: Sprain of foot, Contusion of left knee. - Condition is Stable. - Discharge Instructions: Foot Sprain, Knee Pain. - Prescriptions for Ibuprofen 800 mg Oral Tablet - take 1 tablet by ORAL route every 12 hours As needed take with food; 20 tablet. Tylenol- Codeine #3 300-30 mg Oral Tablet - take 2 tablets by ORAL route every 6 hours As needed; 20 tablet. - Medication Reconciliation Form, Thank You Letter, Antibiotic Education, Prescription Opioid Use form. - Follow up: Private Physician; When: 1 week; Reason: If symptoms return, Recheck today's complaints, Continuance of care, Re-evaluation by your physician. - Problem is new. - Symptoms have improved. Signatures: Dispatcher [employer] EDWI Cody Mcnamara MD MD [email or web address] Neli Zaragoza RN RN bb Damián Bailey PA PA jr8 Sofía Ba RN RN jl7 Efraín Kwan RN RN rr5 Corrections: (The following items were deleted from the chart) 11/15 08:02 07:33 11/15/2019 07:33 Discharged to Home. Impression: Sprain of foot; Contusion of jl7 left knee. Condition is Stable. Forms are Medication Reconciliation Form, Thank You Letter, Antibiotic Education, Prescription Opioid Use. Follow up: Private Physician; When: 1 week; Reason: If symptoms return, Recheck today's complaints, Continuance of care, Re-evaluation by your physician. Problem is new. Symptoms have improved. jr8
[2019-11-15 08:23] VITALS: BP 123/83; TEMP 97.6; O2SAT 98
--- NOTE | 2019-11-15 09:11 | RAD REPORT ---
EXAM DESCRIPTION: RAD - Foot Left 3 View - 11/15/2019 7:25 am CLINICAL HISTORY: Left foot pain, trip and fall COMPARISON: None. FINDINGS: No fracture, dislocation or periosteal reaction. No acute or destructive bony process. Sm all plantar spur present. No air or foreign body in the soft tissues. IMPRESSION: Negative left foot examination for acute finding.
--- NOTE | 2019-11-15 09:12 | RAD REPORT ---
EXAM DESCRIPTION: RAD - Knee Left 3 View - 11/15/2019 7:25 am CLINICAL HISTORY: PAIN, trip and fall COMPARISON: No comparisons FINDINGS: No fracture, dislocation or periosteal reaction.No joint effusion seen. No joint space lady rowing. No foreign body in the soft tissues. Soft tissues anterior to the knee joint and proximal tib ia are thickened from edema or contusion. IMPRESSION: Extra articular anterior soft tissue injury evident. No acute bone or joint finding. Clinical concerns for internal derangement or occult bony injury could be further assessed with MR im aging.
== END 2019-11-15 08:02 | disposition home or self-care (01) ==
LOC: ER 06:17
DX: S93.602A Unspecified sprain of left foot, initial encounter (principal); S80.02XA Contusion of left knee, initial encounter; X58.XXXA Exposure to other specified factors, initial encounter; Y93.89 Activity, other specified; Y92.89 Other specified places as the place of occurrence of the external cause; F17.210 Nicotine dependence, cigarettes, uncomplicated
CPT/HCPCS: 99283